=== PATIENT | male | born 1960 | race Caucasian/White ===

== ENCOUNTER 2020-07-02 11:30 | Inpatient (IN) | payer MEDICAID, SELFPAY ==
[~2020-07-02] VITALS: Ht 172.7 cm; Wt 90.3 kg
--- NOTE | 2020-07-02 11:39 | NUR ---
Patient ambulated to bed 8. RN evaluating patient at bedside.
[2020-07-02 11:41] VITALS: BP 123/89
--- NOTE | 2020-07-02 11:42 | NUR ---
60 y/o male from home c/o SOB, fatigue, and fever x 3 days. RR even and unlabored, able to speak in full sentences. Skin warm, dry, intact. Unknown positive covid contact. Denies cough. Pt awake and alert, x 1 side rail raised, bed locked and in lowest position. Placed on bedside monitor
--- NOTE | 2020-07-02 11:45 | NUR ---
Dr De Leon at bedside examining pt
--- NOTE | 2020-07-02 12:00 | NUR ---
Covid, RSV, Influenza swab collected from pt and sent to lab.
--- NOTE | 2020-07-02 12:07 | NUR ---
Pt placed on 4L NC, O2 >94% per Dr De Leon
[2020-07-02 12:17] LABS: HEMATOCRIT 41.3 % (36-52); HEMOGLOBIN 14.3 g/dL (12.0-18.0); MEAN CORPUSCULAR HEMOGLOBIN 30 pg (27-31); MEAN CORPUSCULAR HGB CONC 35 g/dL (33-37); MEAN CORPUSCULAR VOLUME 87.8 fL (80-94); PLATELET COUNT (AUTO) 156 K/uL (140-450); RED BLOOD CELL COUNT(AUTO) 4.71 MIL/uL (4.20-6.10); RED CELL DISTRIBUTION WIDTH 13.6 % (11.6-13.7); WHITE BLOOD COUNT (AUTO) 12.1 K/uL (4.8-10.8)
--- NOTE | 2020-07-02 12:18 | NUR ---
X-Ray at bedside.
[2020-07-02 12:29] LABS: PROTHROMBIN TIME 11.8 secs (10.8-13.4)
[2020-07-02 12:31] LABS: ALBUMIN 3.4 g/dL (3.4-5.0); ANION GAP 14.6 (8-16); CARBON DIOXIDE 24.8 mmol/L (21-32); POTASSIUM 3.4 mmol/L (3.5-5.1); TOTAL BILIRUBIN 1.1 mg/dL (0.0-1.0)
--- NOTE | 2020-07-02 12:36 | NUR ---
Lactic Acid 2.3-- critical vaule received from lab. Dr De Leon made aware
[2020-07-02 12:52] LABS: LACTATE DEHYDROGENASE 261 U/L (85-227)
[2020-07-02 12:53] LABS: C-REACTIVE PROTEIN QUANT 16.2 mg/dL (0.0-0.9)
[2020-07-02 12:56] LABS: LYMPHOCYTES % (MANUAL) 8 % (20-46); MONOCYTES % (MANUAL) 6 % (5-12)
[2020-07-02 12:57] LABS: APPEARANCE,URINE CLEAR (CLEAR); BILIRUBIN,URINE 1+ (NEGATIVE); BLOOD, URINE TRACE-L (NEGATIVE); COLOR,URINE YELLOW (YELLOW); LEUKOCYTE ESTERASE ,URINE NEGATIVE (NEGATIVE); NITRITE, URINE NEGATIVE (NEGATIVE); UGLUCOSE NEGATIVE (NEGATIVE)
[2020-07-02 13:01] LABS: RSV NEGATIVE (NEGATIVE)
[2020-07-02 13:13] LABS: RBC,URINE NONE SEEN /HPF (0-5); WBC,URINE 0-5 /HPF (0-5)
[2020-07-02] MEDS ORDERED: AZITHROMYCIN 1,000 MG in DEXTROSE 5% 500 ML IV ONE (13:25)
[2020-07-02] MEDS ORDERED: NACL 0.9% 2,000 ML IV ONE (13:25)
[2020-07-02] MEDS ORDERED: DEXAMETHASONE 10 MG/ML VIAL IVP ONE (13:25)
[2020-07-02] MEDS ORDERED: AZITHROMYCIN 500 MG INJ VIAL IV ONE (13:39)
--- NOTE | 2020-07-02 14:01 | NUR ---
Pt sitting upright in bed, HOB elevated. RR even and unlabored, tachypnic. Will continue to monitor
[2020-07-02] MEDS ORDERED: ONDANSETRON 4 MG/2 ML VIAL IM/IVP PRN (14:15)
[2020-07-02] MEDS ORDERED: POTASSIUM CHLORIDE 10 MEQ TABER PO PRN (14:15)
[2020-07-02] MEDS ORDERED: DOCUSATE SODIUM 100 MG GELCAP PO PRN (14:15)
[2020-07-02] MEDS ORDERED: HYDROcodone/APAP 7.5/325 MG 1 TAB PO PRN (14:15)
[2020-07-02] MEDS ORDERED: NACL 0.9% 1,000 ML IV SCH ×2 (14:25→16:00)
[2020-07-02 14:55] LABS: FREE T4 (FREE THYROXINE) 1.34 ng/dL (0.76-1.46); MAGNESIUM 1.9 mg/dL (1.8-2.4); PHOSPHORUS 2.5 mg/dL (2.5-4.9); THYROID STIMULATING HORMONE 1.25 uIU/mL (0.34-3.74)
[2020-07-02 14:56] LABS: BARBITURATE, URINE NEGATIVE ng/ml (NEG <=200); BENZODIAZEPINE, URINE NEGATIVE ng/mL (NEG <=200); CANNABINOID, URINE NEGATIVE ng/mL (NEG <=50); COCAINE, URINE NEGATIVE ng/mL (NEG <=300); OPIATE, URINE NEGATIVE ng/mL (NEG <=2000); PHENCYCLIDINE SCREEN,URINE NEGATIVE ng/mL (NEG <=25)
--- NOTE | 2020-07-02 15:19 | NUR ---
Patient will be admitted to care of Dr Monet. Admited to tele. Will go to room 120a. Belongings list completed. Report to SHADI Ponce.
[2020-07-02 15:20] VITALS: BP 121/74
--- NOTE | 2020-07-02 15:20 | NUR ---
RECEIVED REPORT FROM ER NURSE. PT ARRIVED ON WHEELCHAIR, AOX4-BERMUDIAN SPEAKING, ON 5L/NC, WITH LEFT AC #20G/SL. MRSA NARES COLLECTED AND TOLERATED WELL. ORIENTED PT TO ROOM. DISCUSSED PLAN OF CARE AND PT VERBALIZED UNDERSTANDING. CALL LIGHT WITHIN REACH. NO S/S OF RESPIRATORY DISTRESS OR DISCOMFORT NOTED AT THIS TIME. WILL CONTINUE TO MONITOR.
[2020-07-02] MEDS: NACL 0.9% 1,000 ML IV SCH (15:58)
--- NOTE | 2020-07-02 15:59 | NUR ---
JEAN PAUL BOGGS. SCHEDULED MEDICATION ROCEPHIN GIVEN AND TOLERATED WELL. CALL LIGHT WITHIN REACH. NO S/S OF RESPIRATORY DISTRESS OR DISCOMFORT NOTED AT THIS TIME. WILL CONTINUE TO MONITOR.
--- NOTE | 2020-07-02 19:30 | NUR ---
RECEIVED BEDSIDE REPORT FROM AM NURSE. AMBULATORY TELE PT. AWAKE IN BED, RESTING COMFORTABLY. NO SOB, NO ACUTE DISTRESS NOTED AT THIS TIME. RESPIRATIONS EVEN AND NON LABORED, ON 5L NC. DENIES ANY PAIN/DISCOMFORT. NOTED IV ACCESS ON L AC 20G. PATENT AND INTACT. DROPLET ISOLATION PRECAUTION OBSERVED. SAFETY MEASURES IN PLACED. CALL LIGHT WITHIN REACH. WILL CONTINUE TO MONITOR.
[2020-07-02 20:00] VITALS: BP 129/75
--- NOTE | 2020-07-02 21:30 | NUR ---
PT IN BED RESTING COMFORTABLY, DUE MEDS GIVEN ORDERED. ON CONTINUOUS O2 AT 5LPM VIA NC. SATTING 97%. NO ACUTE DISTRESS, NO SOB NOTED. SAFETY MEASURES IN PLACED. ISOLATION PRECAUTION OBSERVED. CALL LIGHT WITHIN REACH. WILL CONTINUE TO MONITOR.
--- NOTE | 2020-07-02 22:30 | NUR ---
CHECKED ON PT. STILL AWAKE. NO C/O ANY DISCOMFORT NOR SOB NOTED. WILL CONTINUE TO MONITOR.
[2020-07-03] VITALS: BP 111/67
--- NOTE | 2020-07-03 00:30 | NUR ---
ROUNDS DONE, PT AWAKE ON BED, RESTING COMFORTABLY, DENIES PAIN/DISCOMFORT. SAFETY MEASURES IN PLACED. WILL CONTINUE TO MONITOR.
--- NOTE | 2020-07-03 02:30 | NUR ---
PT IN BED RESTING COMFORTABLY, NO C/O OF PAIN OR DISCOMFORT. NO SOB, NO ACUTE DISTRESS NOTED. CALL LIGHT WITHIN REACH. WILL CONTINUE TO MONITOR.
[2020-07-03 04:00] VITALS: BP 130/70
--- NOTE | 2020-07-03 04:20 | NUR ---
PT IN BED LYING COMFORTABLY, V/S STABLE. AFEBRILE. O2 SAT 95%. DENIES ANY PAIN/DISCOMFORT AT THIS TIME. NO ACUTE DISTRESS NOTED. SAFETY MEASURES IN PLACED. CALL LIGHT WITHIN REACH. WILL CONTINUE TO MONITOR.
--- NOTE | 2020-07-03 06:20 | NUR ---
CHECKED ON PT, SEEN SLEEPING COMFORTABLY IN BED. NO SOB NOTED. WILL CONTINUE TO MONITOR.
[2020-07-03 06:31] LABS: HEMATOCRIT 37.7 % (36-52); HEMOGLOBIN 13.1 g/dL (12.0-18.0); LYMPHOCYTES # (AUTO) 0.6 K/uL (2.0-11.5); MEAN CORPUSCULAR HEMOGLOBIN 31 pg (27-31); MEAN CORPUSCULAR HGB CONC 35 g/dL (33-37); MEAN CORPUSCULAR VOLUME 88.5 fL (80-94); MONOCYTES # (AUTO) 0.4 K/uL (0.8-1.0); MONOCYTES % (AUTO) 4.4 % (1.7-9.3); NEUTROPHILS # (AUTO) 8.6 K/uL (1.8-7.7); PLATELET COUNT (AUTO) 134 K/uL (140-450); RED BLOOD CELL COUNT(AUTO) 4.26 MIL/uL (4.20-6.10); RED CELL DISTRIBUTION WIDTH 13.5 % (11.6-13.7); WHITE BLOOD COUNT (AUTO) 9.6 K/uL (4.8-10.8)
[2020-07-03 06:46] LABS: MAGNESIUM 1.9 mg/dL (1.8-2.4); PHOSPHORUS 2.4 mg/dL (2.5-4.9)
[2020-07-03] MEDS: NACL 0.9% 1,000 ML IV SCH (06:53)
--- NOTE | 2020-07-03 07:16 | NUR ---
ENDORSED PT IN STABLE CONDITION TO AM NURSE.
--- NOTE | 2020-07-03 07:17 | NUR ---
RECEIVED REPORT FROM PM RNAISHWARYA. PT CAME FROM HOME. C/O: SOB, FATIGUE, AND FEVER X2DAYS. DX: HYPOXIA, POSSIBLE PUI, R/O COVID19/ NO PMHXA. PT IS ON DROPLET PRECAUTIONS. PT HAS BEEN SR. RAPID COVID 19 TEST NEGATIVE, PENDING COVID19. IV: LT AC 18G NS 60MLS. PT IS AMBULATORY. O2: 5L NC. BATHROOM. AMBULATORY. PT TRAVELED OUT OF US 1MONTH AGO. XRAY: MILD BIBASAL ATELECTASIS. FOLLOW UP WITH CARRY IN WORKER.
[2020-07-03 07:53] LABS: LYMPHOCYTES % (AUTO) 6.5 % (20.5-51.1); NEUTROPHILS % (AUTO) 89.1 % (42.2-75.2)
[2020-07-03 08:00] VITALS: BP 124/68
[2020-07-03 08:10] LABS: T4 (THYROXINE) 11.2 ug/dL (4.5-12.0)
[2020-07-03] MEDS: AZITHROMYCIN 250 MG TAB PO SCH (08:15)
[2020-07-03] MEDS: ZINC SULF 220 MG CAP PO SCH (08:15)
[2020-07-03] MEDS: ASCORBIC ACID 500 MG TAB PO SCH (08:15)
--- NOTE | 2020-07-03 09:00 | NUR ---
PASSED MEDICATIONS. PT TOLERATED WELL. TAUGHT PT HOW TO USE AN INCENTIVE SPIROMETER. PT IS SATURATING WELL.
--- NOTE | 2020-07-03 11:00 | NUR ---
CHECKED ON PT. PT DENIES PAIN. PT IS SITTING UP IN BED. NO SIGNS OF DISTRESS.
[2020-07-03 12:00] VITALS: BP 131/74
--- NOTE | 2020-07-03 12:00 | NUR ---
VS STABLE. PT DENIES PAIN.
[2020-07-03] MEDS: ACETAMINOPHEN 325 MG TAB PO PRN (14:59)
--- NOTE | 2020-07-03 15:06 | NUR ---
PT COMPLAINING OF HEADACHE. TYLENOL GIVEN. CHECKED PTS TEMPERATURE. PT HAS A LOW FEVER 99.5. GAVE ICE PACK TO COOL HIM DOWN. PT FELT BETTER WITH ICE PACK. WILL CONTINUE TO MONITOR.
--- NOTE | 2020-07-03 15:50 | NUR ---
REASSESSED PT, PT DENIES HEADACHE AFTER TYLENOL GIVEN. PTS TEMPERATURE IS 99.1. TRENDING DOWN.
[2020-07-03 16:00] VITALS: BP 111/67
--- NOTE | 2020-07-03 16:54 | NUR ---
CRITICAL LAB VALUE:PT TESTED POSITIVE FOR COVID19. DR. FRASER NOTIFIED.
--- NOTE | 2020-07-03 19:21 | NUR ---
transfer of care to pm rnjase. pt is resting in bed. vs stable. no signs of distress
--- NOTE | 2020-07-03 19:21 | NUR ---
RECEIVED PT AAOX4 , NID - O2 SAT WNL - W/ O2 AT 5LPM/NC . IV SITE INTACT AND PATENT . SAFETY MEASURES IN PLACE . PLAN OF CARE DISCUSSED AND VERBALIZE UNDERSTANDING , ON TELE MONITOR - WILL CONT. TO MONITOR . PT HAS SKIN VITILIGO .
[2020-07-03 20:00] VITALS: BP 110/60
[2020-07-04] VITALS: BP 105/60
--- NOTE | 2020-07-04 | NUR ---
MADE ROUNDS . NO S/SX OF ACUTE DISTRESS NOTED
[2020-07-04 04:00] VITALS: BP 100/60
--- NOTE | 2020-07-04 04:00 | NUR ---
O2 SAT WNL - NO COMPLAIN MADE
[2020-07-04 05:22] LABS: BASOPHILS % (AUTO) 0.1 % (0.0-2.0); HEMATOCRIT 38.3 % (36-52); HEMOGLOBIN 13.1 g/dL (12.0-18.0); LYMPHOCYTES # (AUTO) 0.8 K/uL (2.0-11.5); MEAN CORPUSCULAR HEMOGLOBIN 30 pg (27-31); MEAN CORPUSCULAR HGB CONC 34 g/dL (33-37); MEAN CORPUSCULAR VOLUME 88.6 fL (80-94); MONOCYTES # (AUTO) 0.5 K/uL (0.8-1.0); MONOCYTES % (AUTO) 4.6 % (1.7-9.3); NEUTROPHILS # (AUTO) 9.9 K/uL (1.8-7.7); NEUTROPHILS % (AUTO) 88.3 % (42.2-75.2); PLATELET COUNT (AUTO) 154 K/uL (140-450); RED BLOOD CELL COUNT(AUTO) 4.32 MIL/uL (4.20-6.10); RED CELL DISTRIBUTION WIDTH 13.6 % (11.6-13.7); WHITE BLOOD COUNT (AUTO) 11.2 K/uL (4.8-10.8)
[2020-07-04 06:14] LABS: ALBUMIN 2.8 g/dL (3.4-5.0); ANION GAP 11.4 (8-16); CARBON DIOXIDE 27.5 mmol/L (21-32); CREATININE 0.8 mg/dL (0.6-1.3); PHOSPHORUS 3.7 mg/dL (2.5-4.9); POTASSIUM 3.9 mmol/L (3.5-5.1); TOTAL BILIRUBIN 0.4 mg/dL (0.0-1.0)
--- NOTE | 2020-07-04 07:22 | NUR ---
ENDORSED TO AM SHIFT - PT - STABLE .
[2020-07-04 07:59] VITALS: BP 142/76
[2020-07-04] MEDS: ZINC SULF 220 MG CAP PO SCH (09:12)
[2020-07-04] MEDS: ASCORBIC ACID 500 MG TAB PO SCH (09:12)
[2020-07-04] MEDS: AZITHROMYCIN 250 MG TAB PO SCH (09:12)
--- NOTE | 2020-07-04 09:24 | NUR ---
PATIENT HAS BEEN SCREENED AND CATEGORIZED MODERATE NUTRITION RISK. PATIENT WILL BE SEEN WITHIN 3-5 DAYS OF ADMISSION. 07/05/20 07/07/[address]
[2020-07-04 12:00] VITALS: BP 148/81
--- NOTE | 2020-07-04 16:11 | NUR ---
DC PLANNIN YRS OLD MALE PATIENT WAS ADMITTED FROM HOME WITH A DX OF HYPOXIA, POSSIBLE PNEUMONIA. PATIENT HAS NO MEDICAL HISTORY. CXR SHOWED BILATERAL LOWER LOBE INFILTRATES. PLACED PATIENT ON O2 4L/NC , COVID TEST POSITIVE. STARTED COVID PROTOCOL, IV ABX ROCEPHIN AND AZITHROMYCIN. CONSULTED WITH ONION TIER AND ID DR LAWRENCE . DC PLAN TO GO HOME WHEN STABLE CM TO FOLLOW Addendum: 07/05/20 at 1550 by Gloria Peraza CM DC HAND STONE POLISHER: RECEIVED ORDER FOR HOME 02. FAXED ORDER TO [facility]. Addendum: 07/07/20 at 0933 by Gloria Peraza DC HAND STONE POLISHER: FOLLOWED UP WITH ALISHA AT [facility], SHE NEEDS DOCUMENTATION OF PATIENT SATURATIONS OF 85 OR LESS IN ORDER TO QUALIFY TO HOME 02. SPOKE TO BILL IN RT HE WILL DO A 02 QUALIFIER. Addendum: 07/07/20 at 1213 by Gloria Peraza CM GAYATRI MCNEIL: THE HOME O2 HAS BEEN SENT OUT FOR DISPATCH THE ETA IS AROUND 1:00 PM Addendum: 07/07/20 at 1218 by Gloria Peraza CM GAYATRI MCNEIL: NOTIFIED SHADI RUBIO Addendum: 07/11/20 at 0911 by Gemini Boogie CM DC PLANNING: RECENT CXR SHOWED WORSENING AIRSPACE OPACITIES . DONOVAN AND MICKEY FOLLOWING. CONTINUE COVID-19 PROTOCOL , COMPLETED REMDESIVIR AND CONVALESCENT PLASMA . CONTINUE ZOSYN AND DECADRON. ON OXYMIZER 30% FIO2. DC PLAN TO GO HOME WITH HOME O2 WHEN STABLE. CM TO FOLLOW. Addendum: 07/12/20 at 1018 by Gemini Boogie CM DC PLANNING: SEEN BY DONOVAN AND MICKEY SUGGESTED TO CONTINUE CURRENT THERAPY , S/P REMDESIVIR TRY TO WEAN O2 AND IV STEROIDS X10 DAYS. FIO2 100% 30L/NC DC PLAN TO GO HOME WHEN STABLE CM TO FOLLOW. Addendum: 07/17/20 at 1527 by Gemini Boogie DC PLANNING: XRAY SHOWED STABLE BILATERAL CONSOLIDATION , PT CONTINUES 30L HIGH FLOW O2/NC AT 100%, CURRENTLY OFF ABX CONTINUES ON IV S/P REMDESIVIR AND PLASMA. PULMO AND ID FOLLOWING CM TO FOLLOW Addendum: 07/19/20 at 1055 by Gemini Boogie CM DC PLANNING: PT IS OFF HIGH FLOW OXYGEN ,CURRENTLY ON 10L OXYMIZER SATING 94 % , SWITCH TO PREDNISONE PO, DC PLAN ONCE ON 4L/NC OF OXYGEN TO DC HOME WITH HOME O2 . PT NEEDS OUT PATIENT FOLLOW UP FOR PFT AND CT CHEST NEXT 4-6 WEEKS. CM TO FOLLOW Addendum: 07/21/20 at 1215 by Gloria Peraza CM DC HAND STONE POLISHER: [facility] SHE IS REQUESTING US TO SEND DOCUMENTATION SO PATIENT CAN RE QUALIFY FOR HOME 02
[2020-07-04] MEDS: NACL 0.9% 1,000 ML IV SCH (16:13)
--- NOTE | 2020-07-04 16:16 | NUR ---
LATE ENTRY BILLING CLERK NOTE: Patient's Orientation Unable To Assess Information Provided By MICHAEL LU - DAUGHTER Comments JOSY WAS UNABLE TO MEET PATIENT AT BEDSIDE TO COMPLETE ASSESSMENT. JOSY COMPLETED ASSESSMENT WITH MICHAEL. Identification Printing Machine Setter, Realtionship and Phone Number NATALYA LEIGH DAUGHTER [phone] [facility] Power of Trash Hauler No Does Patient Have a POLST No Identifying Problems No Social Work Triggers Is A Social Work Consult Needed No Mandate Report Filed No Explanation Of Identifying Problems PATIENT IS A 60-YEAR-OLD MALE ADMITTED FOR HYPOXIA AND POSSIBLE PNA. PATIENT HAS NO REPORTED PMHX. PER PATIENT'S DAUGHTER, THERE IS NO KNOWN MENTAL HEALTH OR SUBSTANCE ABUSE HISTORY. Admitted From Home Pre-Admission Level Of Functioning Status Independent/Ambulatory Prior Resources/Services Used In Last 12 Months No Prior Resources Used Prior DME No Prior DME Used Living Situation Lives With Family House Patient Had Caregiver No Home Support No Caregiver Issues Financial Issues No Known Financial Issue Referral To The Financial Counselor Needed No Factors/Needs No D/C Needs Identified Pt/Rep Participated In Discharge Plan Yes Patient/Family Agress With Discharge Plan Yes Discharge Plan Comments TENTATIVE DISCHARGE PLAN IS FOR PATIENT TO RETURN HOME. DC Plan Status Initiated Addendum: 07/20/20 at 1145 by Victor Manuel Cabral JOSY FOLLOWED UP WITH PATIENT'S DAUGHTER MICHAEL LEIGH REGARDING PLAN OF CARE [phone]. JOSY INFORMED MICHAEL THAT HOME O2 WAS COORDINATED. MICHAEL REQUESTED MEDICAL UPDATE ON PATIENT. JOSY INFORMED HER THAT PATIENT WAS PENDING PULMO CONSULT. MICHAEL REQUESTED NURSING STATION PHONE NUMBER. JOSY PROVIDED [phone]. SW OFFERED SUPPORT AND AVAILABLE RESOURCES, BUT NO NEEDS WERE IDENTIFIED AT THIS TIME. SW WILL FOLLOW UP NEEDED.
[2020-07-04 16:40] VITALS: BP 145/79
[2020-07-04 20:00] VITALS: BP 145/80
--- NOTE | 2020-07-05 07:24 | NUR ---
ENDORSED TO NEXT SHIFT CONTINUITY OF CARE. PT A AO AMBULATORY, PT GOES TO BATHROOM, O2 SAT DECREASES TO 98%, BUT GOES BACK TO 94% ONCE IN BED . STILL WITH 4 LPM O2 VIA NC
--- NOTE | 2020-07-05 07:25 | NUR ---
RECEIVED BEDSIDE REPORT FROM NIGHTSHIFT NURSE. PT RESTING IN BED. ABLE TO MAKE NEEDS KNOWN. RESPIRATIONS EVEN AND UNLABORED WITH NO SOB OR RESPIRATORY DISTRESS. SKIN WARM AND DRY TO TOUCH. IV SITE IN LAC 22G IS CLEAN, DRY, AND INTACT. SAFETY MEASURES IN PLACE. WILL CONTINUE TO MONITOR
[2020-07-05 08:00] VITALS: BP 124/71
[2020-07-05] MEDS: ZINC SULF 220 MG CAP PO SCH (08:26)
[2020-07-05] MEDS: ASCORBIC ACID 500 MG TAB PO SCH (08:26)
[2020-07-05] MEDS: AZITHROMYCIN 250 MG TAB PO SCH (08:26)
[2020-07-05] MEDS: NACL 0.9% 1,000 ML IV SCH (08:41)
--- NOTE | 2020-07-05 08:42 | NUR ---
ADMINISTERED SCHED MED PRESCRIBED PER MD ORDER. PT TOLERATED WELL. MEDICATION EDUCATION PERFORMED. PT VERBALIZED UNDERSTANDING. SAFETY MEASURES IN PLACE. WILL CONTINUE TO MONITOR
[2020-07-05] MEDS: lisinopriL 10 MG TAB PO SCH (10:59)
--- NOTE | 2020-07-05 11:04 | NUR ---
ADMINISTERED SCHED MED PRESCRIBED PER MD ORDER. PT TOLERATED WELL. MEDICATION EDUCATION PERFORMED. PT VERBALIZED UNDERSTANDING. SAFETY MEASURES IN PLACE. WILL CONTINUE TO MONITOR
[2020-07-05] MEDS: ALBUTEROL HFA MDI 90 MCG/ACTUATION 8 GM INH PRN (11:15)
--- NOTE | 2020-07-05 11:15 | NUR ---
SATURATION 94% ON SUPPLEMENTAL OXYGEN AT 7 LPM VIA NC POST MDI THERAPY TITRATED FIO2 TO 6 LPM GROWTH HACKER TO MONITOR VICKY/RN NOTIFIED
--- NOTE | 2020-07-05 11:20 | NUR ---
TOLERATED INCENTIVE SPIROMETRY THERAPY WELL WITHOUT ADVERSE REACTIONS NOTED ENCOURAGED PATIENT WITH ACKNOWLEDGEMENT TO USE INCENTIVE SPIROMETRY EVERY 1-2 HOURS WHILE AWAKE
[2020-07-05 11:52] LABS: BASOPHILS % (AUTO) 0.1 % (0.0-2.0); HEMATOCRIT 40.5 % (36-52); HEMOGLOBIN 13.9 g/dL (12.0-18.0); LYMPHOCYTES # (AUTO) 1.1 K/uL (2.0-11.5); LYMPHOCYTES % (AUTO) 10.6 % (20.5-51.1); MEAN CORPUSCULAR HEMOGLOBIN 30 pg (27-31); MEAN CORPUSCULAR HGB CONC 34 g/dL (33-37); MEAN CORPUSCULAR VOLUME 88.1 fL (80-94); MONOCYTES # (AUTO) 0.7 K/uL (0.8-1.0); MONOCYTES % (AUTO) 6.5 % (1.7-9.3); NEUTROPHILS # (AUTO) 8.4 K/uL (1.8-7.7); NEUTROPHILS % (AUTO) 82.8 % (42.2-75.2); PLATELET COUNT (AUTO) 207 K/uL (140-450); RED BLOOD CELL COUNT(AUTO) 4.59 MIL/uL (4.20-6.10); RED CELL DISTRIBUTION WIDTH 13.3 % (11.6-13.7); WHITE BLOOD COUNT (AUTO) 10.2 K/uL (4.8-10.8)
[2020-07-05 12:00] VITALS: BP 149/77
[2020-07-05 12:12] LABS: ANION GAP 12.7 (8-16); CARBON DIOXIDE 27.8 mmol/L (21-32); CREATININE 0.8 mg/dL (0.6-1.3); POTASSIUM 3.5 mmol/L (3.5-5.1)
--- NOTE | 2020-07-05 14:00 | NUR ---
PATIENT COMPLAINED OF IV SITE PAIN. IV SITE NO LONGER HAD BLOOD RETURN OR ACCESSIBLE FLUSHING. REMOVED INTACT IV CANNULA AND STARTED NEW IV IN RAC 22G IS CLEAN, DRY, AND INTACT. SAFETY MEASURES IN PLACE. WILL CONTINUE TO MONITOR
--- NOTE | 2020-07-05 15:14 | NUR ---
ADMINISTERED SCHED MED PRESCRIBED PER MD ORDER. PT TOLERATED WELL. MEDICATION EDUCATION PERFORMED. PT VERBALIZED UNDERSTANDING. SAFETY MEASURES IN PLACE. WILL CONTINUE TO MONITOR
--- NOTE | 2020-07-05 15:45 | NUR ---
PATIENT SIGNED CONSENT FOR CONVALESCENT PLASMA. PLACED IN CHART. SAFETY MEASURES IN PLACE. WILL CONTINUE TO MONITOR
[2020-07-05] MEDS ORDERED: remdesivir COMMUNICATION ORDER 1 EA MISC MC PRN (15:55)
[2020-07-05 16:00] VITALS: BP 136/72
[2020-07-05] MEDS ORDERED: CLINICAL MONITORING MC PRN (16:15)
[2020-07-05] MEDS ORDERED: REMDESIVIR (EUA) 200 MG in NACL 0.9% 100 ML IV SCH (18:00)
--- NOTE | 2020-07-05 18:35 | NUR ---
ADMINISTERED SCHED MED PRESCRIBED PER MD ORDER. PT TOLERATED WELL. MEDICATION EDUCATION PERFORMED. PT VERBALIZED UNDERSTANDING. SAFETY MEASURES IN PLACE. WILL CONTINUE TO MONITOR
--- NOTE | 2020-07-05 19:15 | NUR ---
ENDORSED TO NIGHTSHIFT NURSE FOR CONTINUITY OF CARE. PT IS STABLE
--- NOTE | 2020-07-05 19:20 | NUR ---
RECEIVED REPORT FROM MARCELO RN. PT AOX4 ON O2 6L N/C. RESPIRATIONS EVEN AND UNLABORED. NO S/S OF RESPIRATORY DISTRESS. NO C/O PAIN AT THIS TIME. SKIN WARM AND DRY TO TOUCH. IV SITE RAC 22G, PATENT AND INTACT, RUNNING NS AT 60 ML/HR. SAFETY MEASURES IN PLACE. CALL LIGHT WITHIN REACH. WILL CONTINUE TO MONITOR
[2020-07-05 20:00] VITALS: BP 126/65
--- NOTE | 2020-07-05 20:07 | NUR ---
ADMINISTERED SCHEDULED HEPARIN SUBQ. PLATELET [id number]. PT TOLERATED WELL. WILL CONTINUE TO MONITOR
--- NOTE | 2020-07-05 20:25 | NUR ---
RECEIVED REPORT FROM AM SHIFT. PT SEEN AND ASSESSED. PT ON 6L NC WITH SPO2 OF 90%. CHANGED MODALITY TO OXYMIZER 6L WITH SPO2 OF 93%. CLEAR BREATH SOUNDS ON AUSCULTATION. PT IS IN NO APPARENT RESPIRATORY DISTRESS AT THIS TIME. PRN TX NOT INDICATED AT THIS TIME. WILL CONTINUE TO MONITOR PT.
--- NOTE | 2020-07-05 22:00 | NUR ---
PT RESTING IN BED. DENIES SOB. DENIES PAIN. NO DISTRESS NOTED. WILL CONTINUE TO MONITOR
[2020-07-06] VITALS: BP 132/69
--- NOTE | 2020-07-06 00:15 | NUR ---
PT ASLEEP IN BED. RESPIRATIONS EVEN AND UNLABORED. NO DISTRESS NOTED. WILL CONTINUE TO MONITOR
--- NOTE | 2020-07-06 01:30 | NUR ---
RESISTANCE ON IV SITE RAC 22G. NO BLOOD FLOW RETURN, DISCONTINUED AND CANNULA INTACT. REINSERTED NEW IV ON LFA 24G, PATENT AND INTACT. WILL CONTINUE TO MONITOR
[2020-07-06] MEDS: NACL 0.9% 1,000 ML IV SCH ×2 (01:33→18:30)
[2020-07-06 04:00] VITALS: BP 138/64
--- NOTE | 2020-07-06 04:00 | NUR ---
PT ASLEEP IN BED. NO DISTRESS NOTED. WILL CONTINUE TO MONITOR
[2020-07-06 05:20] LABS: HEMATOCRIT 38.9 % (36-52); HEMOGLOBIN 13.4 g/dL (12.0-18.0); LYMPHOCYTES # (AUTO) 1.4 K/uL (2.0-11.5); LYMPHOCYTES % (AUTO) 14.8 % (20.5-51.1); MEAN CORPUSCULAR HEMOGLOBIN 30 pg (27-31); MEAN CORPUSCULAR HGB CONC 34 g/dL (33-37); MONOCYTES # (AUTO) 0.6 K/uL (0.8-1.0); MONOCYTES % (AUTO) 6.4 % (1.7-9.3); NEUTROPHILS # (AUTO) 7.3 K/uL (1.8-7.7); NEUTROPHILS % (AUTO) 78.8 % (42.2-75.2); PLATELET COUNT (AUTO) 206 K/uL (140-450); RED BLOOD CELL COUNT(AUTO) 4.42 MIL/uL (4.20-6.10); RED CELL DISTRIBUTION WIDTH 13.4 % (11.6-13.7); WHITE BLOOD COUNT (AUTO) 9.3 K/uL (4.8-10.8)
--- NOTE | 2020-07-06 05:30 | NUR ---
PT AMBULATED TO TOILET AND BACK TO BED WITH STEADY GAIT. PT TOLERATED WELL. NO DISTRESS NOTED. WILL CONTINUE TO MONITOR
[2020-07-06 05:59] LABS: ANION GAP 13.5 (8-16); CARBON DIOXIDE 25.6 mmol/L (21-32); CREATININE 0.8 mg/dL (0.6-1.3); POTASSIUM 4.1 mmol/L (3.5-5.1)
--- NOTE | 2020-07-06 07:15 | NUR ---
ENDORSED PT TO DAY RN FOR CONTINUITY OF CARE. PT IS IN STABLE CONDITION
--- NOTE | 2020-07-06 07:20 | NUR ---
RECEIVED PT FROM AUCTION ASSISTANT NURSE, PT IS AWAKE AND SEATED ON THE BED, WATCHING TV, SAFETY PRECAUTION ENFORCED, PT IS ON ISOLATION AND HAS AN IV LINE NOTED ON THE LFA G. 24 WITH NS AT 60ML/HR, INTACT PT IS ON OXYMIZER AT 9L O2 SATURATION AT 91%, PT DENIES PAIN AND NO SIGN OF DISTRESS NOTED. WILL MONITOR PT.
[2020-07-06 08:00] VITALS: BP 105/56
[2020-07-06] MEDS: ZINC SULF 220 MG CAP PO SCH (08:55)
[2020-07-06] MEDS: ASCORBIC ACID 500 MG TAB PO SCH (08:56)
[2020-07-06] MEDS: lisinopriL 10 MG TAB PO SCH (08:56)
--- NOTE | 2020-07-06 08:56 | NUR ---
PT WAS GIVEN THE SCHEDULED AM MEDICATIONS, BP MED NOT GIVEN BP IS 105/56, PULSE IS 75, O2 SATURATION IS AT 93% ON OXYMIZER, NO SIGN OF DISTRESS NOTED AND WILL MONITOR PT.
[2020-07-06] MEDS: ACETAMINOPHEN 325 MG TAB PO PRN (11:34)
--- NOTE | 2020-07-06 11:34 | NUR ---
PT WAS GIVEN TYLENOL FOR TEMP. OF 100.4, WILL RE-ASSESS TEMP AND MONITOR PT.
[2020-07-06 12:00] VITALS: BP 122/64
[2020-07-06 12:46] LABS: ALBUMIN 2.6 g/dL (3.4-5.0); BILIRUBIN,DIRECT 0.2 mg/dL (0.0-0.3); TOTAL BILIRUBIN 0.5 mg/dL (0.0-1.0)
[2020-07-06] MEDS: REMDESIVIR (EUA) 100 MG in NACL 0.9% 100 ML IV SCH (15:36)
--- NOTE | 2020-07-06 15:36 | NUR ---
PT WAS GIVEN THE REMDESEVIR, PT IS WATCHING TV, DENIES PAIN, V/S TAKEN AND IS STABLE, O2 SATURATION IS AT 95% ON 02 6L VIA OXYMIZER, WILL MONITOR PT.
[2020-07-06 16:00] VITALS: BP 116/63
--- NOTE | 2020-07-06 18:32 | NUR ---
PT IS HAVING DINNER NOW, DENIES PAIN AND NO SIGN OF DISTRESS NOTED. WILL MONITOR PT.
--- NOTE | 2020-07-06 19:15 | NUR ---
ENDORSED PT TO CHRISTIAN SCIENCE HEALER NURSE FOR CONTINUITY OF CARE.
--- NOTE | 2020-07-06 19:16 | NUR ---
RECEIVED BEDSIDE ENDORSEMENT FROM SHADI MCCARTHY. PATIENT HAS NO SOB, ON 9L OXIMIZER, O2 SAT WNL, RESPIRATION EVEN AND UNLABORED, AOX4, WITH RT ARM DISCOLORATION, IVF INFUSING AT LFA G 22, DROPLET ISO OBSERVED, LOW BED IN PLACE, SAFETY MEASURES IN PLACE, PLAN OF CARE DISCUSSED, CALL LIGHT WITHIN REACH.
[2020-07-06 20:00] VITALS: BP 120/68
--- NOTE | 2020-07-06 20:20 | NUR ---
RECEIVED REPORT FROM AM SHIFT. PT SEEN AND ASSESSED. PT ON 10L OXYMIZER WITH SPO2 OF 93%. RALES BREATH SOUNDS ON AUSCULTATION. PT IS IN NO APPARENT RESPIRATORY DISTRESS AT THIS TIME. PRN TX NOT INDICATED AT THIS TIME. WILL CONTINUE TO MONITOR PT.
--- NOTE | 2020-07-06 21:19 | NUR ---
DUE MED GIVEN, TOLERATED WELL, MED EDUCATION PROVIDED, NO RESPIRATORY DISTRESS, WATCHING TV, DENIES PAIN.
--- NOTE | 2020-07-06 22:13 | NUR ---
PT WAS ASSISTED INTO PRONE POSITION. PT IS IN NO RESPIRATORY DISTRESS AT HIS TIME. SPO2 95%. RN DOROTHY WAS NOTIFIED.
--- NOTE | 2020-07-06 23:00 | NUR ---
RESPIRATION EVEN AND UNLABORED, NO SOB, ON PRONE POSITION, CALL LIGHT WITHIN REACH.
[2020-07-07] VITALS: BP 119/68
--- NOTE | 2020-07-07 02:00 | NUR ---
SLEEPING, O2 SAT AT 99%. PRONE POSITION, 9L OXIMIZER
[2020-07-07 04:00] VITALS: BP 122/68
--- NOTE | 2020-07-07 04:15 | NUR ---
V/S TAKEN, NO SOB, CALL LIGHT WITHIN REACH.
--- NOTE | 2020-07-07 06:49 | NUR ---
NOT IN ANY RESPIRATORY DISTRESS, PATIENT IS ASLEEP, ALL NEEDS ATTENDED, IN STABLE CONDITION THE WHOLE SHIFT, CALL LIGHT WITHIN REACH.
[2020-07-07 07:22] LABS: BASOPHILS % (AUTO) 0.1 % (0.0-2.0); EOSINOPHILS % (AUTO) 0.2 % (0.0-4.0); HEMATOCRIT 41.3 % (36-52); LYMPHOCYTES # (AUTO) 1.6 K/uL (2.0-11.5); MEAN CORPUSCULAR HEMOGLOBIN 30 pg (27-31); MEAN CORPUSCULAR HGB CONC 34 g/dL (33-37); MEAN CORPUSCULAR VOLUME 88.8 fL (80-94); MONOCYTES # (AUTO) 0.6 K/uL (0.8-1.0); MONOCYTES % (AUTO) 5.2 % (1.7-9.3); NEUTROPHILS # (AUTO) 9.9 K/uL (1.8-7.7); NEUTROPHILS % (AUTO) 81.5 % (42.2-75.2); PLATELET COUNT (AUTO) 236 K/uL (140-450); RED BLOOD CELL COUNT(AUTO) 4.65 MIL/uL (4.20-6.10); RED CELL DISTRIBUTION WIDTH 13.4 % (11.6-13.7); WHITE BLOOD COUNT (AUTO) 12.2 K/uL (4.8-10.8)
[2020-07-07 07:29] LABS: ANION GAP 13.5 (8-16); CARBON DIOXIDE 26.6 mmol/L (21-32); CREATININE 0.8 mg/dL (0.6-1.3); POTASSIUM 4.1 mmol/L (3.5-5.1)
--- NOTE | 2020-07-07 07:30 | NUR ---
RECEIVED REPORT FROM [facility] NURSE, ASSUMED CARE. PT RESTING COMFORTABLY WITH NO ADVERSE REACTIONS NOTED AND/OR REPORTED. PERSONAL BELONGINGS, BEDSIDE TABLE, CALL LIGHT WITHIN REACH. WILL CONTINUE TO MONITOR.
[2020-07-07 07:38] LABS: ALBUMIN 2.5 g/dL (3.4-5.0); BILIRUBIN,DIRECT 0.2 mg/dL (0.0-0.3); TOTAL BILIRUBIN 0.6 mg/dL (0.0-1.0)
[2020-07-07 08:00] VITALS: BP 121/65
[2020-07-07] MEDS: lisinopriL 10 MG TAB PO SCH (09:41)
[2020-07-07] MEDS: ZINC SULF 220 MG CAP PO SCH (09:41)
--- NOTE | 2020-07-07 09:50 | NUR ---
PT UNABLE TO DEBORAH ROOM AIR SPO2 IN LOW 80,S .80 .82 X [address] BACK ON O2
[2020-07-07] MEDS: NACL 0.9% 1,000 ML IV SCH (11:01)
[2020-07-07] MEDS: ASCORBIC ACID 500 MG TAB PO SCH (11:01)
[2020-07-07 12:00] VITALS: BP 126/70
--- NOTE | 2020-07-07 12:45 | NUR ---
[facility]OU[facility] 1 PORTABLE O2, NC AND TRANSFER CRAD[place] FOR PT'S HOME. PLACED IN PT'S ROOM.
--- NOTE | 2020-07-07 14:57 | NUR ---
07/07/20 RD INITIAL ASSESSMENT COMPLETED PLEASE REFER TO NUTRITION ASSESSMENT UNDER CARE ACTIVITY FOR ESTIMATED NUTRITIONAL NEEDS. 1. CONTINUE MECHANICAL SOFT DIET TOLERATED 2. CONTINUE ENSURE TID 3. RD PROVIDED NUTRITION EDUCATION HANDOUT ON COVID-[address] [place] [address] TO FOLLOW-UP 3-5 DAYS, MODERATE RISK ARASH SMITH RD
[2020-07-07 16:00] VITALS: BP 111/59
[2020-07-07] MEDS: REMDESIVIR (EUA) 100 MG in NACL 0.9% 100 ML IV SCH (16:26)
--- NOTE | 2020-07-07 18:51 | NUR ---
CARE PLAN REVIEWED, INTERVENTIONS IMPLEMENTED: PT REPOSITIONED FREQUENTLY THROUGHOUT SHIFT, LABS AND I/O MONITORED, IV FLUIDS THERAPY, IV ANTIVIRAL/ABX THERAPY. VSS, AFEBRILE, O2 SAT >92% ON 10 LPM OXIMIZER. NO C/O PAIN THROUGHOUT SHIFT. PT CONTINUES TO BE A/O X4. PT CONTINUES ON IV FLUIDS WITH NO ADVERSE REACTIONS NOTED AND/OR REPORTED. PT CONTINUES ON IV ABX AND ANTIVIRALS WITH NO ADVERSE REACTIONS NOTED AND/OR REPORTED. ALL NEEDS MET THIS SHIFT. PERSONAL BELONGINGS, BEDSIDE TABLE, CALL LIGHT WITHIN REACH. WILL CONTINUE TO MONITOR.
--- NOTE | 2020-07-07 19:00 | NUR ---
RECEIVED REPORT FROM AM SHIFT. PT SEEN AND ASSESSED. PT ON 10L OXYMIZER WITH SPO2 OF 91%. RALES BREATH SOUNDS ON AUSCULTATION. PT IS IN NO APPARENT RESPIRATORY DISTRESS AT THIS TIME. PRN TX NOT INDICATED AT THIS TIME. WILL CONTINUE TO MONITOR PT.
[2020-07-07 20:00] VITALS: BP 126/60
--- NOTE | 2020-07-07 20:00 | NUR ---
RECEIVED PT AWAKE AND ALERT IN BED. PT RECEIVING 10L O2 VIA OXIMIZER. PT ON CONTINUOUS O2 MONITORING. PT GETS HYPOXIC WITH O2 DROPPING TO 88-89% WITH EXERTION. PT DENIES ANY PAIN OR DISCOMFORT AT THIS TIME. PT EDUCATED ON PRONING. PT VERBALIZED UNDERSTANDING. PT ON TELE MONITORING. BED LOWERED WITH CALL LIGHT WITHIN REACH
[2020-07-08] VITALS: BP 121/67
--- NOTE | 2020-07-08 01:43 | NUR ---
PT ASLEEP IN BED. NO S/S OF DISTRESS NOTED. O2 SAT 91% ON 10L OXIMIZER
[2020-07-08] MEDS: NACL 0.9% 1,000 ML IV SCH ×2 (03:47→20:13)
[2020-07-08 04:52] VITALS: BP 115/72
--- NOTE | 2020-07-08 05:00 | NUR ---
PT AWAKE IN BED IN PRONE POSITION. O2 SAT 95% ON 10L VIA OXIMIZER. NO S/S OF DISTRESS AT THIS TIME
[2020-07-08 05:42] LABS: BASOPHILS % (AUTO) 0.1 % (0.0-2.0); EOSINOPHILS % (AUTO) 0.2 % (0.0-4.0); HEMATOCRIT 39.8 % (36-52); HEMOGLOBIN 13.5 g/dL (12.0-18.0); LYMPHOCYTES # (AUTO) 1.5 K/uL (2.0-11.5); LYMPHOCYTES % (AUTO) 11.5 % (20.5-51.1); MEAN CORPUSCULAR HEMOGLOBIN 30 pg (27-31); MEAN CORPUSCULAR HGB CONC 34 g/dL (33-37); MEAN CORPUSCULAR VOLUME 88.4 fL (80-94); MONOCYTES # (AUTO) 0.5 K/uL (0.8-1.0); NEUTROPHILS # (AUTO) 11.1 K/uL (1.8-7.7); NEUTROPHILS % (AUTO) 84.2 % (42.2-75.2); PLATELET COUNT (AUTO) 236 K/uL (140-450); RED BLOOD CELL COUNT(AUTO) 4.51 MIL/uL (4.20-6.10); RED CELL DISTRIBUTION WIDTH 13.3 % (11.6-13.7); WHITE BLOOD COUNT (AUTO) 13.2 K/uL (4.8-10.8)
[2020-07-08 05:47] LABS: ANION GAP 10.8 (8-16); CARBON DIOXIDE 29.2 mmol/L (21-32); CREATININE 0.8 mg/dL (0.6-1.3)
[2020-07-08 05:58] LABS: ALBUMIN 2.5 g/dL (3.4-5.0); BILIRUBIN,DIRECT 0.1 mg/dL (0.0-0.3); TOTAL BILIRUBIN 0.5 mg/dL (0.0-1.0)
--- NOTE | 2020-07-08 07:30 | NUR ---
RECEIVED REPORT FROM [facility] NURSE, ASSUMED CARE. PT RESTING COMFORTABLY WITH NO S/S OF PAIN AND/OR DISTRESS AT THIS TIME. PERSONAL BELONGINGS, BEDSIDE TABLE, CALL LIGHT WITHIN REACH. WILL CONTINUE TO MONITOR.
[2020-07-08 08:00] VITALS: BP 115/64
[2020-07-08] MEDS: lisinopriL 10 MG TAB PO SCH (09:59)
[2020-07-08] MEDS: ASCORBIC ACID 500 MG TAB PO SCH (09:59)
[2020-07-08] MEDS: ZINC SULF 220 MG CAP PO SCH (10:00)
[2020-07-08 12:00] VITALS: BP 116/63
--- NOTE | 2020-07-08 12:30 | NUR ---
received report from rnjaxon. assumed care of pts. pt is comfortable in bed. resting.
--- NOTE | 2020-07-08 13:00 | NUR ---
pt has a fever, 102.5. notified dr. benavides. gave tylenol and ice pack to help cool pt down.
[2020-07-08] MEDS: ACETAMINOPHEN 325 MG TAB PO PRN (13:04)
[2020-07-08] MEDS: ALBUTEROL HFA MDI 90 MCG/ACTUATION 8 GM INH PRN (13:40)
--- NOTE | 2020-07-08 14:00 | NUR ---
pts fever went down to 98.6. pt is doing better. skin is cooler to touch. no complaints of pain,
--- NOTE | 2020-07-08 14:30 | NUR ---
RETURNED FFP BACK TO THE BLOOD BANK BECAUSE THE BLOOD TYPES WERE NOT COMPATIBLE. PT IS O+ AND THE DONOR WAS A+. IT WAS UNCLEAR ON WHETHER THE PLASMA TYPES WERE COMPATIBLE. CONSULTED WITH PAROLE AGENT AND CHARGE NURSE. CONSULTED WITH DR WILSON. DR. WILSON SAID NOT TO GIVE FRESH FROZEN PLASMA DUE TO THE COMPATIBILITY. FFP WAS NOT GIVEN. RETURNED BACK TO THE BLOOD BANK.
[2020-07-08 16:00] VITALS: BP 103/57
[2020-07-08] MEDS: REMDESIVIR (EUA) 100 MG in NACL 0.9% 100 ML IV SCH (16:16)
--- NOTE | 2020-07-08 19:14 | NUR ---
TRANSFER OF CARE TO PM RN. PT IS STABLE. RUNNING FFP AT 200MLS. PT IS TOLERATING TX.
--- NOTE | 2020-07-08 19:15 | NUR ---
RECEIVED PATIENT IN STABLE CONDITION FROM AM SHIFT NURSE FOR CONTINUITY OF CARE. TELE PATIENT. RESPIRATIONS EVEN, UNLABORED. CONTINUES ON O2 10L VIA OXIMIZER. O2SAT 94%. SKIN WARM, DRY. IV SITE TO LEFT FOREARM 22G, PATENT/INTACT, INFUSING FLUIDS WELL. NO C/O PAIN. NO S/S ACUTE DISTRESS. ABDOMEN SOFT, NONTENDER, NONDISTENDED. CONTINENT OF B/B. PLAN OF CARE DISCUSSED WITH PATIENT. ISOLATION PRECAUTIONS OBSERVED BY ALL STAFF.
[2020-07-08 20:00] VITALS: BP 103/56
[2020-07-08] MEDS: PIPERACILLIN/TAZOBACTAM 3.375 GM in DEXTROSE 5% 50 ML IV SCH (20:55)
--- NOTE | 2020-07-08 21:00 | NUR ---
PATIENT RESTING WELL IN BED TALKING ON PHONE WITH FAMILY. NO S/S ACUTE DISTRESS. NO C/O PAIN. DUE MEDS GIVEN ORDERED. ISOLATION PRECAUTIONS OBSERVED BY ALL STAFF. CALL LIGHT WITHIN REACH.
--- NOTE | 2020-07-08 23:41 | NUR ---
MADE ROUNDS. PATIENT IS ASLEEP. NO S/S ACUTE DISTRESS. CALL LIGHT WITHIN REACH. ISOLATION PRECAUTIONS OBSERVED BY ALL STAFF.
[2020-07-09] VITALS: BP 113/61
--- NOTE | 2020-07-09 01:20 | NUR ---
PATIENT IS RESTING COMFORTABLY IN BED. NO S/S ACUTE DISTRESS. CALL LIGHT WITHIN REACH. ISOLATION PRECAUTIONS OBSERVED BY ALL STAFF.
--- NOTE | 2020-07-09 03:06 | NUR ---
PATIENT IS ASLEEP. NO S/S ACUTE DISTRESS. CALL LIGHT WITHIN REACH. ISOLATION PRECAUTIONS OBSERVED BY ALL STAFF.
[2020-07-09 04:00] VITALS: BP 119/75
[2020-07-09] MEDS: PIPERACILLIN/TAZOBACTAM 3.375 GM in DEXTROSE 5% 50 ML IV SCH ×3 (04:27→20:54)
--- NOTE | 2020-07-09 05:12 | NUR ---
PATIENT IS AWAKE AND IN NO DISTRESS. C/O THAT HIS NOSE HURT FROM THE OXIMIZER BUT WAS RECEPTIVE TO THE EDUCATION REGARDING OXYGEN THERAPY. PATIENT IS VERY COMPLIANT WITH CARE. ALL OTHER NEEDS ATTENDED TO. CALL LIGHT WITHIN REACH AT ALL TIMES. ISOLATION PRECAUTIONS OBSERVED BY ALL STAFF.
--- NOTE | 2020-07-09 06:38 | NUR ---
DUE MEDS GIVEN ORDERED. PATIENT IS ASLEEP AND IN STABLE CONDITION. CONTINUES ON O2 10L VIA OXIMIZER WITH O2SAT 88-89%. CALL LIGHT WITHIN REACH. ISOLATION PRECAUTIONS OBSERVED BY ALL STAFF.
--- NOTE | 2020-07-09 07:10 | NUR ---
RECEIVED REPORT FROM NIGHT NURSE PT IS AAOX4 ON OXYGEN 2LPM VIA OXIMIZER, ON REGULAR DIET AMBULATORY, IV SITES INTACT AND PATENT AT LEFT FA G22, SKIN INTACT SAFETY MEASURES IN PLACE AND CALL LIGHT WITHIN REACH. WILL CONTINUE TO MONITOR.
--- NOTE | 2020-07-09 07:10 | NUR ---
RECEIVED REPORT FROM NIGHT NURSE PT IS AAOX2 ON OXYGEN 2LPM VIA NC, SKIN INTACT, IV SITES IN PLACE AND INTACT ON THE LEFT HAND G18 AND SALINE LOCK ON RIGHT HAND G18. ON MECHANICAL SOFT. SAFETY MEASURES IN PLACE AND CALL LIGHT WITHIN [facility], WILL CONTINUE TO MONITOR. Addendum: 07/09/20 at 0755 by Alysha Hoang RN WRONG PATIENT.
[2020-07-09 07:38] LABS: ANION GAP 11.6 (8-16); CARBON DIOXIDE 27.6 mmol/L (21-32); CREATININE 0.8 mg/dL (0.6-1.3); POTASSIUM 4.2 mmol/L (3.5-5.1)
[2020-07-09 07:42] LABS: BASOPHILS % (AUTO) 0.1 % (0.0-2.0); EOSINOPHILS % (AUTO) 0.1 % (0.0-4.0); HEMATOCRIT 38.2 % (36-52); LYMPHOCYTES # (AUTO) 1.2 K/uL (2.0-11.5); LYMPHOCYTES % (AUTO) 8.8 % (20.5-51.1); MEAN CORPUSCULAR HEMOGLOBIN 30 pg (27-31); MEAN CORPUSCULAR HGB CONC 34 g/dL (33-37); MEAN CORPUSCULAR VOLUME 87.4 fL (80-94); MONOCYTES # (AUTO) 0.5 K/uL (0.8-1.0); MONOCYTES % (AUTO) 3.4 % (1.7-9.3); NEUTROPHILS # (AUTO) 11.7 K/uL (1.8-7.7); NEUTROPHILS % (AUTO) 87.6 % (42.2-75.2); PLATELET COUNT (AUTO) 242 K/uL (140-450); RED BLOOD CELL COUNT(AUTO) 4.37 MIL/uL (4.20-6.10); RED CELL DISTRIBUTION WIDTH 13.3 % (11.6-13.7); WHITE BLOOD COUNT (AUTO) 13.4 K/uL (4.8-10.8)
[2020-07-09 07:47] LABS: ALBUMIN 2.4 g/dL (3.4-5.0); BILIRUBIN,DIRECT 0.2 mg/dL (0.0-0.3); TOTAL BILIRUBIN 0.5 mg/dL (0.0-1.0)
[2020-07-09 08:00] VITALS: BP 129/49
[2020-07-09] MEDS: ZINC SULF 220 MG CAP PO SCH (08:23)
[2020-07-09] MEDS: ASCORBIC ACID 500 MG TAB PO SCH (08:23)
[2020-07-09] MEDS: lisinopriL 10 MG TAB PO SCH (08:24)
--- NOTE | 2020-07-09 08:38 | NUR ---
MEDICATION DUE GIVEN AT THIS TOME PT IS SITTING AND EATING, PT SAID ABLE TO SLEEP WELL AND FELLS BETTER. CHECK VITAL SIGNS PRIOR TO MEDICATION BP 122/65 NV 77. PT IS STABLE . NO DISTRESS NOTED AND DENIES PAIN. SAFETY MEASURES IN PLACE CALL LIGHT WITHIN REACH WILL CONTINUE TO MONITOR.
--- NOTE | 2020-07-09 11:00 | NUR ---
RESPIRATORY THERAPIST INCREASED OXYGEN LEVEL FROM 10LPM TO 14LPM VIA OXIMIZER AT THIS TIME. PT IS STABLE.
[2020-07-09 12:00] VITALS: BP 116/65
[2020-07-09] MEDS: NACL 0.9% 1,000 ML IV SCH (12:30)
--- NOTE | 2020-07-09 12:30 | NUR ---
MADE ROUNDS AT THIS TIME CHECK VITAL SIGNS AND ADMINISTERED ZOSYN 1OOML. PATIENT IS AWAKE AND NO DISTRESS NOTED AT 88 % OXYGEN SATURATION.
--- NOTE | 2020-07-09 14:40 | NUR ---
DR MALLOY CHECKED THE PATIENT AT THIS TIME AND GAVE ORDER OF PUTTING THE PATIENT ON HIGH FLOW. RT AWARE.
[2020-07-09] MEDS: REMDESIVIR (EUA) 100 MG in NACL 0.9% 100 ML IV SCH (15:55)
[2020-07-09 16:00] VITALS: BP 116/66
--- NOTE | 2020-07-09 16:00 | NUR ---
MEDICATIONS DUE GIVEN AT THIS TIME PATIENT IS IN HIGH FLOW NASAL CANULA 30% PT FEEL BETTER AND CAN BREATH BETTER. OXYGEN SATURATION AT 95%.
--- NOTE | 2020-07-09 19:15 | NUR ---
RECEIVED REPORT FROM DAY SHIFT NURSE FOR CONTINUITY OF CARE. PT IS AWAKE AND ALERT. A&O X 4. BREATHING IS UNLABORED. HE IS ON HI FLOW OXYGEN AT 30 L. O2 SAT AT 93%. SR ON TELE MONITORING. PT AMBULATES TO THE RESTROOM NEEDED. SKIN IS WARM, DRY, AND INTACT. WHITE DISCOLORATION ON SKIN. IV IS LEFT FOREARM 22 GAUGE RUNNING NS AT 60 ML PER HOUR. IV IS PATENT AND INTACT. BED IS IN THE LOWEST POSITION, CALL LIGHT IS WITHIN REACH. PLAN OF CARE WAS DISCUSSED. PT IS STABLE AT THIS TIME.
--- NOTE | 2020-07-09 19:20 | NUR ---
ENDORSED TO NIGHT NURSE FOR CONTINUITY OF CARE. PT IS STABLE
[2020-07-09 20:00] VITALS: BP 117/63
--- NOTE | 2020-07-09 21:15 | NUR ---
PT IS AWAKE AND ALERT. WATCHING TV IN BED. STATES HE IS FEELING A LOT BETTER. O2 SAT IS 94% ON HIGH FLOW NC WITH 30L O2. BREATHING IS UNLABORED. PT IS PERFORMING IS AT BEDSIDE. EDUCATION WAS GIVEN ON IMPORTANCE OF USING THE INCENTIVE SPIROMETER. PT VERBALIZED UNDERSTANDING. STABLE AT THIS TIME.
--- NOTE | 2020-07-09 23:05 | NUR ---
ROUNDED ON PT. HE IS AWAKE AND ON THE PHONE. PT IS NOT IN ANY DISTRESS OR PAIN. BREATHING IS REGULAR AND UNLABORED. O2 SAT IS 95% ON 30 L HIGH FLOW NC. IV FLUIDS ARE INFUSING AND BED IS IN THE LOWEST POSITION.
[2020-07-10] VITALS: BP 115/68
--- NOTE | 2020-07-10 01:11 | NUR ---
PT IS ASLEEP. VS ARE STABLE. O2 SAT IS 95% ON 30 L O2 HIGH FLOW NC. CHEST RISE AND FALL IS SYMMETRICAL. BED IS IN THE LOWEST POSITION AND CALL LIGHT IS WITHIN REACH.
--- NOTE | 2020-07-10 03:15 | NUR ---
IV IS PATENT AND INTACT. FLUIDS ARE RUNNING AT 20 ML PER HOUR PER ORDER. PT IS SLEEPING IN SEMI FOWLERS POSITION. NO COUGHING NOTED. NO RESPIRATORY DISTRESS AT THIS TIME. PT IS STABLE
[2020-07-10 04:00] VITALS: BP 107/61
[2020-07-10] MEDS: PIPERACILLIN/TAZOBACTAM 3.375 GM in DEXTROSE 5% 50 ML IV SCH ×3 (05:03→23:29)
--- NOTE | 2020-07-10 05:13 | NUR ---
ANTIBIOTIC IS RUNNING AND IV IS PATENT. PATIENT IS AWAKE AND TALKING. BREATHING IS UNLABORED. O2 SAT IS 94%. PT WAS GIVEN A BLANKET FOR COMFORT. PT HAS NO REQUESTS AT THIS TIME. WILL CONTINUE TO MONITOR OXYGEN SATURATION AND WORK OF BREATHING.
--- NOTE | 2020-07-10 06:46 | NUR ---
O2 SAT IS 89% ON HIGH FLOW NASAL CANNULA AT 30 L. PT SEEMS EXHAUSTED BUT BREATHING IS UNLABORED. HE IS NOT IN ANY DISTRESS OR PAIN. NO COUGHING CURRENTLY. WILL CONTINUE TO MONITOR.
--- NOTE | 2020-07-10 07:05 | NUR ---
ENDORSED PT TO DAY SHIFT NURSE FOR CONTINUITY OF CARE. PT IS STABLE AT THIS TIME. O2 SAT IS 95% AND BREATHING IS UNLABORED. PLAN OF CARE WAS DISCUSSED.
--- NOTE | 2020-07-10 07:10 | NUR ---
RECEIVED REPORT FROM NIGHTSHIFT NURSE. PT RESTING IN BED. ABLE TO MAKE NEEDS KNOWN. RESPIRATIONS EVEN AND UNLABORED WITH NO SOB OR RESPIRATORY DISTRESS. SKIN WARM AND DRY TO TOUCH. IV SITE IN LFA 22G IS CLEAN, DRY, AND INTACT. SAFETY MEASURES IN PLACE. WILL CONTINUE TO MONITOR
[2020-07-10 07:30] LABS: BASOPHILS % (AUTO) 0.1 % (0.0-2.0); HEMATOCRIT 40.6 % (36-52); HEMOGLOBIN 13.9 g/dL (12.0-18.0); LYMPHOCYTES # (AUTO) 1.3 K/uL (2.0-11.5); LYMPHOCYTES % (AUTO) 8.3 % (20.5-51.1); MEAN CORPUSCULAR HEMOGLOBIN 30 pg (27-31); MEAN CORPUSCULAR HGB CONC 34 g/dL (33-37); MEAN CORPUSCULAR VOLUME 87.8 fL (80-94); MONOCYTES # (AUTO) 0.6 K/uL (0.8-1.0); MONOCYTES % (AUTO) 3.9 % (1.7-9.3); NEUTROPHILS # (AUTO) 13.8 K/uL (1.8-7.7); NEUTROPHILS % (AUTO) 87.7 % (42.2-75.2); PLATELET COUNT (AUTO) 281 K/uL (140-450); RED BLOOD CELL COUNT(AUTO) 4.63 MIL/uL (4.20-6.10); RED CELL DISTRIBUTION WIDTH 13.5 % (11.6-13.7); WHITE BLOOD COUNT (AUTO) 15.7 K/uL (4.8-10.8)
[2020-07-10 07:33] LABS: ANION GAP 13.8 (8-16); CARBON DIOXIDE 27.4 mmol/L (21-32); CREATININE 0.8 mg/dL (0.6-1.3); POTASSIUM 4.2 mmol/L (3.5-5.1)
[2020-07-10 08:00] VITALS: BP 110/63
[2020-07-10] MEDS: lisinopriL 10 MG TAB PO SCH (08:54)
[2020-07-10] MEDS: ZINC SULF 220 MG CAP PO SCH (08:54)
[2020-07-10] MEDS: ASCORBIC ACID 500 MG TAB PO SCH (08:54)
--- NOTE | 2020-07-10 09:03 | NUR ---
ADMINISTERED SCHED MED PRESCRIBED PER MD ORDER. PT TOLERATED WELL. MEDICATION EDUCATION PERFORMED. PT VERBALIZED UNDERSTANDING. SAFETY MEASURES IN PLACE. WILL CONTINUE TO MONITOR
--- NOTE | 2020-07-10 11:04 | NUR ---
HOURLY ROUNDING. PT RESTING IN BED. ABLE TO MAKE NEEDS KNOWN. RESPIRATIONS EVEN AND UNLABORED WITH NO SOB OR RESPIRATORY DISTRESS. SKIN WARM AND DRY TO TOUCH. SAFETY MEASURES IN PLACE. WILL CONTINUE TO MONITOR
[2020-07-10 12:00] VITALS: BP 120/74
[2020-07-10] MEDS: NACL 0.9% 1,000 ML IV SCH (12:22)
--- NOTE | 2020-07-10 12:23 | NUR ---
ADMINISTERED SCHED IVF PRESCRIBED PER MD ORDER. PT TOLERATED WELL. MEDICATION EDUCATION PERFORMED. PT VERBALIZED UNDERSTANDING. SAFETY MEASURES IN PLACE. WILL CONTINUE TO MONITOR
--- NOTE | 2020-07-10 12:48 | NUR ---
ADMINISTERED SCHED MED PRESCRIBED PER MD ORDER. PT TOLERATED WELL. MEDICATION EDUCATION PERFORMED. PT VERBALIZED UNDERSTANDING. SAFETY MEASURES IN PLACE. WILL CONTINUE TO MONITOR
--- NOTE | 2020-07-10 14:25 | NUR ---
PT RESTING IN BED. FLACC 0. RESPIRATIONS EVEN AND UNLABORED WITH NO SOB OR RESPIRATORY DISTRESS. SKIN WARM AND DRY TO TOUCH. SAFETY MEASURES IN PLACE. WILL CONTINUE TO MONITOR
[2020-07-10 16:00] VITALS: BP 104/63
--- NOTE | 2020-07-10 18:05 | NUR ---
PT RESTING IN BED EATING DINNER. ABLE TO MAKE NEEDS KNOWN. RESPIRATIONS EVEN AND UNLABORED WITH NO SOB OR RESPIRATORY DISTRESS. SKIN WARM AND DRY TO TOUCH. SAFETY MEASURES IN PLACE. WILL CONTINUE TO MONITOR
--- NOTE | 2020-07-10 19:28 | NUR ---
ENDORSED TO NIGHTSHIFT FOR CONTINUITY OF CARE. PT IS STABLE
--- NOTE | 2020-07-10 19:35 | NUR ---
PT IN BED AOX4 STABLE WITH NO C/O VOICED. PT IS ON 30 LITERS HIGH FLOW NASAL CANNULA. PT STATING AT 90%. IV SITE ON LFA INTACT AND ASYMPTOMATIC RUNNING NORMAL SALINE AT 20MLS/HR. DROPLET PRECAUTIONS IN PLACE. REPORT GIVEN AT BEDSIDE BY BRIANA HSU DAYSHIFT NURSE.
[2020-07-10 20:00] VITALS: BP 98/61
--- NOTE | 2020-07-10 21:30 | NUR ---
RT MAKING ROUNDS AND IN PT ROOM ASSESSING PT.
--- NOTE | 2020-07-10 22:00 | NUR ---
PT SITTING UP IN BED ZOSYN HUNG AND RUNNING AT 100MLS/HR ORDERED. IV SITE LF/A 22G INTACT, ASYMPTOMATIC AND FLUSHED PATENT. PT ALSO GIVEN ORDERED HEPARIN SQ SHOT(PLATELETS 281). MEDICATION EDUCATION GIVEN INCLUDING SIDE EFFECTS, PT ACKNOWLEDGED UNDERSTANDING. 02 88% ON HIGH FLOW 30 LITERS PT SAID HE FELT NO DISCOMFORT, NO SOB PT LUNGS CLEAR AND BOWEL SOUNDS PRESENT. RT MADE AWARE PT STATING 88% AND COMFORTABLE, PER RT, OK. ALL FALLS AND DROPLET PRECAUTIONS IN PLACE.
[2020-07-11] VITALS: BP 92/52
--- NOTE | 2020-07-11 | NUR ---
PT IN BED NO S/S OF PAIN OR DISTRESS NOTED. 02 REMAINS AT 30 LITERS VIA HI FLOW N/C.PT RESTING WITH EYES CLOSED BUT AROUSABLE TO NAME AND LIGHT TOUCH NO C/O VOICED AT THIS TIME. IV FLUIDS RUNNING NORMAL SALINE AT 20MLS/HR ORDERED. ALL FALLS AND DROPLET PRECAUTIONS IN PLACE; V/S FOLLOWS: T 97.7 P 74 R 20 B/P 102/59 02 91% ON 30MLS HIGH FLOW N/C.
--- NOTE | 2020-07-11 02:15 | NUR ---
ROUNDS DONE, PT ASLEEP IN BED SUPPLEMENT 02 AT 30 LITERS HIGH FLOW N/C. 02 AT 92%. PT SLEEPING IN BED NO S/S OF PAIN OR DISTRESS NOTED. NORMAL SALINE RUNNING AT 20MLS/HR. ALL DROPLET AND FALLS PRECAUTIONS IN PLACE.
[2020-07-11 04:00] VITALS: BP 102/59
--- NOTE | 2020-07-11 04:00 | NUR ---
PT IN BED AWAKE SITTING UP IN BED HE CONTINUES ON HIGH FLOW 30MLS/HR V/S FOLLOWS: T 97.4 P 70 R 18 B/P 92/52 02 IS 89%. PT HAS NO SOB AND NO C/O VOICED. ALL DROPLET AND FALLS PRECAUTIONS IN PLACE.
--- NOTE | 2020-07-11 05:30 | NUR ---
DUE RENETTA BOGGS AND IS RUNNING AT 100MLS/HR. ORDERED. NO C/O VOICED ALL DROPLET PRECAUTIONS IN PLACE.
[2020-07-11] MEDS: PIPERACILLIN/TAZOBACTAM 3.375 GM in DEXTROSE 5% 50 ML IV SCH ×3 (05:55→20:13)
[2020-07-11 07:02] LABS: BASOPHILS % (AUTO) 0.2 % (0.0-2.0); HEMATOCRIT 40.3 % (36-52); HEMOGLOBIN 13.6 g/dL (12.0-18.0); LYMPHOCYTES # (AUTO) 0.9 K/uL (2.0-11.5); LYMPHOCYTES % (AUTO) 5.4 % (20.5-51.1); MEAN CORPUSCULAR HEMOGLOBIN 30 pg (27-31); MEAN CORPUSCULAR HGB CONC 34 g/dL (33-37); MONOCYTES # (AUTO) 0.7 K/uL (0.8-1.0); MONOCYTES % (AUTO) 4.3 % (1.7-9.3); NEUTROPHILS # (AUTO) 14.5 K/uL (1.8-7.7); NEUTROPHILS % (AUTO) 90.1 % (42.2-75.2); PLATELET COUNT (AUTO) 270 K/uL (140-450); RED BLOOD CELL COUNT(AUTO) 4.58 MIL/uL (4.20-6.10); RED CELL DISTRIBUTION WIDTH 13.6 % (11.6-13.7)
--- NOTE | 2020-07-11 07:21 | NUR ---
RECEIVED ENDORSEMENT FROM NIGHT, AWAKE, ALERT, ORIENTED X4, ON HIGH FLOW METER OF O2 AT 30%, SATURATING AT 88-89%. NON LABORED BREATHING NOTED. WITH IV CANNULA G20 AT RT FOREARM NOTED, ON SALINE LOCK.ON DROPLET ISOLATION, DX WITH COVID POSITIVE. SAFETY MEASURES IN PLACE AND CONTINUE MONITOR.
[2020-07-11 07:29] LABS: ANION GAP 12.9 (8-16); CARBON DIOXIDE 26.5 mmol/L (21-32); CREATININE 0.9 mg/dL (0.6-1.3); POTASSIUM 4.4 mmol/L (3.5-5.1)
[2020-07-11 08:00] VITALS: BP 112/72
[2020-07-11] MEDS: ASCORBIC ACID 500 MG TAB PO SCH (09:23)
[2020-07-11] MEDS: ZINC SULF 220 MG CAP PO SCH (09:24)
[2020-07-11] MEDS: lisinopriL 10 MG TAB PO SCH (09:24)
--- NOTE | 2020-07-11 09:32 | NUR ---
FULLY AWAKE AND ALERT, NO COMPLAINED OF SOB. DUE MEDICATION GIVEN.
--- NOTE | 2020-07-11 11:01 | NUR ---
FULLY AWAKE,ALERT AND WATCHING TV. NOT IN DISTRESS NOTED.
[2020-07-11 12:00] VITALS: BP 97/69
--- NOTE | 2020-07-11 12:36 | NUR ---
VITAL SIGNS TAKEN AND RECORDED, STABLE. LUNCH SERVED AND DUE MEDICATION GIVEN
[2020-07-11] MEDS: NACL 0.9% 1,000 ML IV SCH (13:30)
--- NOTE | 2020-07-11 14:17 | NUR ---
AWAKE AND ALERT, STILL IN HIGH FLOW METER OF O2 SATURATING AT 89%, NOT IN DISTRESS AND SOB CLAIMED
[2020-07-11 16:00] VITALS: BP 117/72
--- NOTE | 2020-07-11 16:17 | NUR ---
WATCHING TV, NOT IN DISTRESS NOTED
--- NOTE | 2020-07-11 18:08 | NUR ---
DINNER SERVED WITH REGULAR DIET, ABLE TO CONSUMED 75% OF FOOD.
--- NOTE | 2020-07-11 19:16 | NUR ---
ENDORSED TO LEAD DRIVER IN STABLE CONDITION FOR CONTINUITY OF CARE.
--- NOTE | 2020-07-11 19:20 | NUR ---
RECEIVED REPORT FROM AM NURSE. PT COMFORTABLY SITTING IN BED, ABLE TO MAKE NEEDS KNOWS. AAOX4. NO ACUTE DISTRESS, NO SOB NOTED. DENIES PAIN OR DISCOMFORT AT THIS TIME. RESPIRATIONS EVEN AND NON LABORED. ON HIGH FLOW METER 30L OF O2 AND FIO2 100%, SATTING 89-90%. PT HAS LFA IV ACCESS 24G, INTACT AND PATENT, RUNNING NS @20 ML/HR. SKIN WARM, DRY AND INTACT. OBSERVED DROPLET PRECAUTION ISOLATION. ALL SAFETY MEASURES IN PLACED, BED IN LOWEST POSITION, SIDE RAILS UP X2. WILL CONTINUE TO MONITOR.
[2020-07-11 20:00] VITALS: BP 102/60
--- NOTE | 2020-07-11 20:04 | NUR ---
DR LAWRENCE SEEN PT, WITH NO NEW ORDERS MADE.
--- NOTE | 2020-07-11 20:14 | NUR ---
DUE MEDS HEPARIN SUBQ AND ATB ZOSYN IVP WAS GIVEN. PT TOLERATING WELL. DENIES PAIN OR DISCOMFORT AT THIS TIME. DROPLET PRECAUTION IN PLACED, PROPER PPE OBSERVED. CALL LIGHT WITHIN REACH. WILL CONTINUE TO MONITOR.
[2020-07-12] VITALS: BP 102/58
--- NOTE | 2020-07-12 | NUR ---
VITAL SIGNS ARE WITHIN NORMAL LIMITS. ALL SAFETY MEASURES ARE IN PLACE.
--- NOTE | 2020-07-12 02:00 | NUR ---
PT ON BED, WATCHING ON HIS PHONE. DENIES ANY PAIN OR DISCOMFORT. SAFETY MEASURES IN PLACED. CALL LIGHT WITHIN REACH. WILL CONTINUE TO MONITOR.
[2020-07-12 04:00] VITALS: BP 102/61
--- NOTE | 2020-07-12 04:00 | NUR ---
PT IS SLEEPING IN BED, COMFORTABLY. NO S/S OF RESPIRATORY DISTRESS NOTED. WILL CONTINUE TO MONITOR.
[2020-07-12] MEDS: PIPERACILLIN/TAZOBACTAM 3.375 GM in DEXTROSE 5% 50 ML IV SCH ×3 (04:38→20:37)
--- NOTE | 2020-07-12 04:38 | NUR ---
ATB ZOSYN ADMINISTERED VIA IVP. V/S WITHIN NORMAL LIMIT. AFEBRILE. ON HIGH FLOW 15L SATTING 87%. WILL CONTINUE TO MONITOR. Addendum: 07/12/20 at 0600 by Leanne Napier RN ZOSYN VIA IVPB
[2020-07-12 05:31] LABS: BASOPHILS % (AUTO) 0.1 % (0.0-2.0); HEMOGLOBIN 14.8 g/dL (12.0-18.0); LYMPHOCYTES # (AUTO) 1.8 K/uL (2.0-11.5); LYMPHOCYTES % (AUTO) 9.6 % (20.5-51.1); MEAN CORPUSCULAR HEMOGLOBIN 30 pg (27-31); MEAN CORPUSCULAR HGB CONC 34 g/dL (33-37); MEAN CORPUSCULAR VOLUME 88.7 fL (80-94); MONOCYTES # (AUTO) 0.7 K/uL (0.8-1.0); MONOCYTES % (AUTO) 3.7 % (1.7-9.3); NEUTROPHILS % (AUTO) 86.6 % (42.2-75.2); PLATELET COUNT (AUTO) 322 K/uL (140-450); RED BLOOD CELL COUNT(AUTO) 4.96 MIL/uL (4.20-6.10); RED CELL DISTRIBUTION WIDTH 13.6 % (11.6-13.7); WHITE BLOOD COUNT (AUTO) 18.5 K/uL (4.8-10.8)
[2020-07-12 05:59] LABS: MAGNESIUM 2.1 mg/dL (1.8-2.4); PHOSPHORUS 4.5 mg/dL (2.5-4.9)
[2020-07-12 06:00] LABS: ANION GAP 11.2 (8-16); CARBON DIOXIDE 30.2 mmol/L (21-32); CREATININE 0.9 mg/dL (0.6-1.3); POTASSIUM 4.4 mmol/L (3.5-5.1)
--- NOTE | 2020-07-12 06:35 | NUR ---
PT IN BED LYING COMFORTABLY, NO PAIN OR DISCOMFORT NOTED. NO SOB, NO ACUTE DISTRESS NOTED. SAFETY MEASURES IN PLACED. CALL LIGHT WITHIN REACH. WILL CONTINUE TO MONITOR.
--- NOTE | 2020-07-12 07:22 | NUR ---
ENDORSED PT TO AM NURSE ,IN STABLE CONDITION, FOR CONTINUITY OF CARE.
--- NOTE | 2020-07-12 07:25 | NUR ---
RECEIVED PATIENT FROM NIGHT NURSE. PATIENT SITTING UP IN BED TALKING TO GENERAL INTERNIST. RESP EVEN AND UNLABORED ON HIGH FLOW, O2 SAT 89-90%. NO NOTED DISTRESS AT THIS TIME. PATIENT IS ABLE TO MAKE NEEDS KNOWN. NS 20ML/HR INFUSING WELL TO LFA IV ACCESS. DROPLET PRECAUTION OBSERVED. SAFETY MEASURES IN PLACE. CALL LIGHT WITHIN REACH. WILL CONTINUE TO MONITOR.
[2020-07-12 08:00] VITALS: BP 112/74
[2020-07-12] MEDS: ASCORBIC ACID 500 MG TAB PO SCH (08:41)
[2020-07-12] MEDS: lisinopriL 10 MG TAB PO SCH (08:41)
[2020-07-12] MEDS: ZINC SULF 220 MG CAP PO SCH (08:42)
--- NOTE | 2020-07-12 08:58 | NUR ---
MORNING ROUTINE MEDICATIONS GIVEN. PATIENT TOLERATED WELL. RESP EVEN AND UNLABORED ON HIGH FLOW, O2SAT 93%. PATIENT DENIES OF PAIN AT THIS TIME. ABLE TO MAKE NEEDS KNOWN. LFA ACCESS INTACT AND PATENT, INFUSING WELL. SKIN IS WARM TO TOUCH AND INTACT. PLAN OF CARE DISCUSSED WITH PATIENT. PATIENT VERBALIZED UNDERSTANDING. SAFETY MEASURES IN PLACE, CALL LIGHT WITHIN REACH. WILL CONTINUE TO MONITOR.
--- NOTE | 2020-07-12 10:40 | NUR ---
PATIENT SLEEPING IN BED. RESP EVEN AND UNLABORED ON 15L NC HIGH FLOW, O2SAT 91%, CHEST RISING. NO NOTED ACUTE S/S OF DISTRESS. CALL LIGHT WITHIN REACH. BED IN LOW POSITION. WILL CONTINUE TO MONITOR.
[2020-07-12 12:00] VITALS: BP 112/65
[2020-07-12] MEDS: NACL 0.9% 1,000 ML IV SCH (13:25)
--- NOTE | 2020-07-12 13:40 | NUR ---
ZOSYN IVPB GIVEN. PATIENT IS AWAKE AND ALERT. DENIES OF PAIN AT THIS TIME. ABLE TO MAKE NEEDS KNOWN. SAFETY MEASURES IN PLACE. WILL CONTINUE TO MONITOR.
--- NOTE | 2020-07-12 14:45 | NUR ---
07/12/20 RD INITIAL ASSESSMENT COMPLETED PLEASE REFER TO NUTRITION ASSESSMENT UNDER CARE ACTIVITY FOR ESTIMATED NUTRITIONAL NEEDS. 1. CONTINUE MECHANICAL SOFT DIET TOLERATED 2. CONTINUE ENSURE TID 3. RD TO FOLLOW-UP 3-5 DAYS, MODERATE RISK ARASH SMITH RD
[2020-07-12 16:00] VITALS: BP 101/61
--- NOTE | 2020-07-12 16:50 | NUR ---
PATIENT SITTING ON CHAIR BY BEDSIDE. LINENS GIVEN WITH DENTISTRY PROFESSOR ASSIST. RESP EVEN AND UNLABORED ON 15L HIGH FLOW. PATIENT AMBULATED TO THE BATHROOM WITH STEADY GAIT. PER PATIENT, O2SAT WENT DOWN TO 87% BUT RECOVERED QUICKLY WITH REST. NO ACUTE DISTRESS AT THIS TIME. CALL LIGHT WITHIN REACH. WILL CONTINUE TO MONITOR.
--- NOTE | 2020-07-12 19:20 | NUR ---
RECIVED PT AAOX4 , NID - O2 SAT WNL . ON HIGH FLOW O2 AT 15LPM /NC . ON TELE MONITOR - SR . IV SITE INTACT AND PATENT . SAFETY MEASURES IN PLACE . DENIES ANY PAIN . SKIN VITILIGO NOTICE ALL OVER TH BODY - SKIN INTACT . POC DISCUSSED AND VERBALIZE UNDERSTANDING . WILL CONT. TO MONITOR .
--- NOTE | 2020-07-12 19:25 | NUR ---
PATIENT SITTING UP IN BED WATCHING TV. IN GOOD SPIRIT. RESP EVEN AND UNLABORED ON 15L HIGH FLOW O2SAT 93%. DENIES OF PAIN AT THIS TIME. ENDORSED PATIENT TO NIGHT NURSE. PATIENT IN STABLE CONDITION.
[2020-07-12 20:00] VITALS: BP 100/60
--- NOTE | 2020-07-12 20:15 | NUR ---
RECEIVED REPORT FROM AM SHIFT. PT SEEN AND ASSESSED. PT ON 30L AND FiO2 100% WITH SPO2 OF 92%. RALES BREATH SOUNDS ON AUSCULTATION. PT IS IN NO APPARENT RESPIRATORY DISTRESS AT THIS TIME. PRN TX NOT INDICATED AT THIS TIME. WILL CONTINUE TO MONITOR PT.
[2020-07-13] VITALS: BP 90/61
--- NOTE | 2020-07-13 | NUR ---
made rounds , no s/sx of acute distress noted .
[2020-07-13 04:00] VITALS: BP 99/61
--- NOTE | 2020-07-13 04:00 | NUR ---
MADE ROUNDS , NO S/SX OF ACUTE DISTRESS NOTED AT THIS TIME .
[2020-07-13] MEDS: PIPERACILLIN/TAZOBACTAM 3.375 GM in DEXTROSE 5% 50 ML IV SCH ×3 (05:56→20:18)
--- NOTE | 2020-07-13 06:00 | NUR ---
NO COMPLAIN MADE .
[2020-07-13 06:04] LABS: BASOPHILS % (AUTO) 0.1 % (0.0-2.0); HEMATOCRIT 41.2 % (36-52); HEMOGLOBIN 13.8 g/dL (12.0-18.0); LYMPHOCYTES # (AUTO) 1.1 K/uL (2.0-11.5); LYMPHOCYTES % (AUTO) 6.1 % (20.5-51.1); MEAN CORPUSCULAR HEMOGLOBIN 30 pg (27-31); MEAN CORPUSCULAR HGB CONC 33 g/dL (33-37); MEAN CORPUSCULAR VOLUME 89.1 fL (80-94); MONOCYTES # (AUTO) 0.8 K/uL (0.8-1.0); MONOCYTES % (AUTO) 4.5 % (1.7-9.3); NEUTROPHILS # (AUTO) 15.6 K/uL (1.8-7.7); NEUTROPHILS % (AUTO) 89.3 % (42.2-75.2); PLATELET COUNT (AUTO) 278 K/uL (140-450); RED BLOOD CELL COUNT(AUTO) 4.62 MIL/uL (4.20-6.10); RED CELL DISTRIBUTION WIDTH 13.6 % (11.6-13.7); WHITE BLOOD COUNT (AUTO) 17.5 K/uL (4.8-10.8)
[2020-07-13 06:16] LABS: ALBUMIN 2.2 g/dL (3.4-5.0); ANION GAP 10.8 (8-16); CARBON DIOXIDE 28.6 mmol/L (21-32); CREATININE 0.9 mg/dL (0.6-1.3); PHOSPHORUS 3.8 mg/dL (2.5-4.9); POTASSIUM 4.4 mmol/L (3.5-5.1); TOTAL BILIRUBIN 0.5 mg/dL (0.0-1.0)
--- NOTE | 2020-07-13 07:12 | NUR ---
ENDORSD TO AM SHIFT - PT - STABLE
--- NOTE | 2020-07-13 07:15 | NUR ---
RECEIVED REPORT FORM NIGHT NURSE PATIENT IS AMBULATORY ON HIGH FLOW 15LPM VIA NC OXYGEN,SKIN VITILIGO, SKIN INTACT IV SITES INTACT AND PATENT. SAFETY MEASURES IN PLACE AND CALL LIGHT WITHIN REACH. WILL CONTINUE TO MONITOR.
[2020-07-13 08:00] VITALS: BP 110/72
--- NOTE | 2020-07-13 10:00 | NUR ---
MEDICATIONS GIVEN AT THIS TIME CHECK VITAL SIGNS PRIOR TO MEDICATION BP 110/72 AL 73. NO DISTRESS NOTED , DENIES PAIN SAFETY MEASURES IN PLACE CALL LIGHT WITHIN REACH. WILL CONTINUE TO MONITOR.
[2020-07-13] MEDS: ZINC SULF 220 MG CAP PO SCH (10:04)
[2020-07-13] MEDS: ASCORBIC ACID 500 MG TAB PO SCH (10:05)
[2020-07-13] MEDS: lisinopriL 10 MG TAB PO SCH (10:05)
[2020-07-13 12:00] VITALS: BP 103/60
--- NOTE | 2020-07-13 12:00 | NUR ---
MADE ROUNDS AT THIS TIME PT IS STABLE MO DISTRESS NOTED
[2020-07-13] MEDS: NACL 0.9% 1,000 ML IV SCH (12:39)
--- NOTE | 2020-07-13 13:20 | NUR ---
MEDICATIONS DUE GIVEN AND CHECK VITAL SIGNS BP 103/60 CA 67 NO DISTRESS NOTED DENIES PAIN SAFETY MEASURES IN PLACE AND CALL LIGHT WITHIN REACH. WILL CONTINUE TO MONITOR.
--- NOTE | 2020-07-13 15:00 | NUR ---
MADE ROUNDS AT THIS TIME PT IS STABLE AND NO COMPLAINS OF PAIN
[2020-07-13 16:00] VITALS: BP 98/57
--- NOTE | 2020-07-13 19:10 | NUR ---
ENDORSED TO NIGHT NURSE FOR CONTINUITY OF CARE. PT IS STABLE
[2020-07-13 20:00] VITALS: BP 113/72
--- NOTE | 2020-07-13 20:00 | NUR ---
REPORT RECEIVED FROM DAY SHIFT RN. PT ON HIGH FLOW @ 30L, FIO2 100% SATTING AT HIGH 90'S. RESPIRATION EVEN AND UNLABORED. SYMMETRICAL CHEST EXPANSION. ORAL MUCOSA PINK AND MOIST. SKIN WARM, DRY AND INTACT. PERIPHERAL ACCESS ON THE RIGHT FOREARM G 20. ASYMPTOMATIC, PATENT AND INTACT. DUE MEDICATIONS GIVEN ORDERED. NO DISTRESS OBSERVED. PT DENIES PAIN AND SOB. ABLE TO MAKE NEEDS KNOWN TO STAFF. DROPLET PRECAUTION MAINTAINED. ALL SAFETY MEASURES IN PLACE. WILL CONTINUE TO MONITOR.
[2020-07-13] MEDS: methylPREDNISolone SS 40 MG/ML VIAL IVP SCH (20:17)
--- NOTE | 2020-07-13 22:00 | NUR ---
PT RESTING IN BED. NO CONCERNS AND COMPLAINTS MADE. WILL CONTINUE TO MONITOR.
[2020-07-14] VITALS (7 sets, daily range): BP systolic 94–116; BP diastolic 50–79
--- NOTE | 2020-07-14 01:00 | NUR ---
PT RESTING IN BED AT THIS TIME. NO RESPIRATORY DISTRESS OBSERVED. WILL CONTINUE TO MONITOR PT.
[2020-07-14] MEDS: PIPERACILLIN/TAZOBACTAM 3.375 GM in DEXTROSE 5% 50 ML IV SCH ×3 (05:15→20:05)
--- NOTE | 2020-07-14 05:15 | NUR ---
ZOSYN HUNG AND INFUSING AT THIS TIME. PT STATED. HE FEELS BETTER TODAY. NO CONCERNS AND COMPLAINTS MADE. WILL CONTINUE TO MONITOR.
[2020-07-14 05:49] LABS: EOSINOPHILS % (AUTO) 0.1 % (0.0-4.0); HEMATOCRIT 43.1 % (36-52); HEMOGLOBIN 14.2 g/dL (12.0-18.0); LYMPHOCYTES # (AUTO) 0.7 K/uL (2.0-11.5); LYMPHOCYTES % (AUTO) 5.1 % (20.5-51.1); MEAN CORPUSCULAR HEMOGLOBIN 30 pg (27-31); MEAN CORPUSCULAR HGB CONC 33 g/dL (33-37); MEAN CORPUSCULAR VOLUME 90.1 fL (80-94); MONOCYTES # (AUTO) 0.2 K/uL (0.8-1.0); MONOCYTES % (AUTO) 1.8 % (1.7-9.3); NEUTROPHILS # (AUTO) 12.8 K/uL (1.8-7.7); PLATELET COUNT (AUTO) 255 K/uL (140-450); RED BLOOD CELL COUNT(AUTO) 4.78 MIL/uL (4.20-6.10); RED CELL DISTRIBUTION WIDTH 13.8 % (11.6-13.7); WHITE BLOOD COUNT (AUTO) 13.8 K/uL (4.8-10.8)
[2020-07-14 06:07] LABS: MAGNESIUM 1.9 mg/dL (1.8-2.4); PHOSPHORUS 4.3 mg/dL (2.5-4.9)
[2020-07-14 06:10] LABS: ANION GAP 10.3 (8-16); CARBON DIOXIDE 29.3 mmol/L (21-32); CREATININE 0.9 mg/dL (0.6-1.3); POTASSIUM 4.6 mmol/L (3.5-5.1)
--- NOTE | 2020-07-14 07:30 | NUR ---
RECEIVED REPORT FROM [facility] NURSE, ASSUMED CARE. PT RESTING COMFORTABLY WITH NO S/S OF PAIN AND/OR DISTRESS AT THIS TIME. PERSONAL BELONGINGS, BEDSIDE TABLE, CALL LIGHT WITHIN REACH. WILL CONTINUE TO MONITOR.
[2020-07-14] MEDS: ASCORBIC ACID 500 MG TAB PO SCH (09:42)
[2020-07-14] MEDS: lisinopriL 10 MG TAB PO SCH (09:43)
[2020-07-14] MEDS: methylPREDNISolone SS 40 MG/ML VIAL IVP SCH ×2 (09:43→20:04)
[2020-07-14] MEDS: ZINC SULF 220 MG CAP PO SCH (09:43)
[2020-07-14] MEDS: NACL 0.9% 1,000 ML IV SCH (12:58)
--- NOTE | 2020-07-14 20:00 | NUR ---
REPORT RECEIVED FROM DAY SHIFT RN. PT IS ALERT AND ORIENTED. PT ON HIGH FLOW @ 30L, FIO2 100% SATTING AT LOW 90'S. RESPIRATION EVEN AND UNLABORED. SYMMETRICAL CHEST EXPANSION. ORAL MUCOSA PINK AND MOIST. SKIN WARM, DRY AND INTACT. PERIPHERAL ACCESS ON THE LEFT FOREARM G24. ASYMPTOMATIC, PATENT AND INTACT. DUE MEDICATIONS GIVEN ORDERED. NO DISTRESS OBSERVED. PT DENIES PAIN AND SOB. ABLE TO MAKE NEEDS KNOWN TO STAFF. DROPLET PRECAUTION MAINTAINED. ALL SAFETY MEASURES IN PLACE. WILL CONTINUE TO MONITOR.
[2020-07-15] VITALS: BP 126/74
--- NOTE | 2020-07-15 | NUR ---
PT IN NO DISTRESS OBSERVED. TURNED AND REPOSITIONED PT. WILL CONTINUE TO MONITOR.
--- NOTE | 2020-07-15 02:30 | NUR ---
NO DISTRESS OBSERVED. PT RESTING IN BED WITH NO CONCERNS AND COMPLAINTS. WILL CONTINUE TO MONITOR.
[2020-07-15 04:00] VITALS: BP 101/69
[2020-07-15] MEDS: PIPERACILLIN/TAZOBACTAM 3.375 GM in DEXTROSE 5% 50 ML IV SCH ×3 (04:00→20:35)
[2020-07-15 05:29] LABS: BASOPHILS # (AUTO) 0.1 K/uL (0.00-0.22); BASOPHILS % (AUTO) 0.4 % (0.0-2.0); EOSINOPHILS # (AUTO) 0.2 K/uL (0-0.4); EOSINOPHILS % (AUTO) 0.9 % (0.0-4.0); HEMATOCRIT 42.7 % (36-52); HEMOGLOBIN 14.2 g/dL (12.0-18.0); LYMPHOCYTES # (AUTO) 0.5 K/uL (2.0-11.5); LYMPHOCYTES % (AUTO) 2.4 % (20.5-51.1); MEAN CORPUSCULAR HEMOGLOBIN 30 pg (27-31); MEAN CORPUSCULAR HGB CONC 33 g/dL (33-37); MONOCYTES # (AUTO) 0.5 K/uL (0.8-1.0); MONOCYTES % (AUTO) 2.6 % (1.7-9.3); NEUTROPHILS % (AUTO) 93.7 % (42.2-75.2); PLATELET COUNT (AUTO) 266 K/uL (140-450); RED BLOOD CELL COUNT(AUTO) 4.74 MIL/uL (4.20-6.10); RED CELL DISTRIBUTION WIDTH 13.7 % (11.6-13.7); WHITE BLOOD COUNT (AUTO) 19.2 K/uL (4.8-10.8)
--- NOTE | 2020-07-15 06:41 | NUR ---
GOT A CRITICAL RESULT FROM LAB LACTIC ACID 2.3. DR. LOPEZ INFORMED NO NEW ORDERS.
--- NOTE | 2020-07-15 07:15 | NUR ---
RECEIVED REPORT FROM REDUCTION FURNACE OPERATOR HELPER NURSE JENNY/VINAYAK FOR CONTINUITY OF CARE. PATIENT IN STABLE CONDITION. RESPIRATIONS EVEN AND UNLABORED, HIGH FLOW NC AT 30LPM. IV INTACT AND PATENT. SAFETY MEASURES IN PLACE. BED IN LOW POSITION.CALL LIGHT WITHIN REACH. WILL CONTINUE TO MONITOR.
[2020-07-15 07:26] LABS: ALBUMIN 2.3 g/dL (3.4-5.0); ANION GAP 13.7 (8-16); CARBON DIOXIDE 27.1 mmol/L (21-32); MAGNESIUM 2.2 mg/dL (1.8-2.4); PHOSPHORUS 3.9 mg/dL (2.5-4.9); POTASSIUM 4.8 mmol/L (3.5-5.1); TOTAL BILIRUBIN 0.4 mg/dL (0.0-1.0)
[2020-07-15 08:00] VITALS: BP 132/76
--- NOTE | 2020-07-15 09:30 | NUR ---
GAVE WATER PER PATIENT REQUEST. PATIENT IN STABLE CONDITION. BED IN LOW POSITION. CALL LIGHT WITHIN REACH. WILL CONTINUE TO MONITOR.
[2020-07-15] MEDS: methylPREDNISolone SS 40 MG/ML VIAL IVP SCH ×2 (10:05→20:40)
[2020-07-15] MEDS: lisinopriL 10 MG TAB PO SCH (10:05)
[2020-07-15] MEDS: ASCORBIC ACID 500 MG TAB PO SCH (10:06)
[2020-07-15] MEDS: ZINC SULF 220 MG CAP PO SCH (10:11)
[2020-07-15 12:00] VITALS: BP 124/66
--- NOTE | 2020-07-15 12:45 | NUR ---
PATIENT ATE 100% LUNCH AND WATCHING TV AT THIS TIME. RESPIRATIONS EVEN AND UNLABORED. BED IN LOW POSITION. CALL LIGHT WITHIN REACH. WILL CONTINUE TO MONITOR.
[2020-07-15] MEDS: NACL 0.9% 1,000 ML IV SCH (12:53)
--- NOTE | 2020-07-15 15:33 | NUR ---
PATIENT SLEEPING AT THIS TIME. RESPIRATIONS EVEN AND UNLABORED. BED IN LOW POSITION. CALL LIGHT WITHIN REACH. WILL CONTINUE TO MONITOR.
[2020-07-15 16:00] VITALS: BP 108/64
--- NOTE | 2020-07-15 19:37 | NUR ---
GAVE REPORT TO INGOT PASSER NURSE FOR CONTINUITY OF CARE. PATIENT IN STABLE CONDITION.
[2020-07-15 20:00] VITALS: BP 104/58
--- NOTE | 2020-07-15 20:00 | NUR ---
RECEIVED BEDSIDE REPORT FROM DAY RN FOR CONTINUITY OF CARE.PT A/A/OX4, SITTING UPRIGHT IN BED WATCHING TV. PT SPEAKS MOSTLY SAMI BUT ABLE TO VERBALIZED NEEDS WITH SIMPLE CYMRAES. PT DENIES ANY PAIN, CHEST PAIN, SOB, PALPITATIONS AND DIZZINESS. VSS, AFEBRILE, SATING 96% ON 30L HIGH FLOW OXYGEN VIA NC. IVF NS RUNNING @ 20 CC/HR ORDERED. NO COMPLAIN AT THIS TIME. ISOLATION PRECAUTION IMPLEMENTED.CALL LIGHT WITHIN REACH. WILL CONTINUE POC AND MONITORING.
--- NOTE | 2020-07-15 22:00 | NUR ---
ADMINISTERED ALL SCHEDULED MEDICATIONS ORDERED. PT TOLERATED IT WELL.NO COMPLAIN OF PAIN AT THIS TIME. CALL LIGHT WITHIN REACH.
[2020-07-16] VITALS: BP 110/66
--- NOTE | 2020-07-16 | NUR ---
PATIENT VITAL SIGNS STABLE, AFEBRILE,SATING 96% ON HIGH FLOW O2. SR ON HEARING CARE PROFESSIONAL, HR-70. NO COMPLAIN OF PAIN AT THIS TIME. CALL LIGHT WITHIN REACH.
--- NOTE | 2020-07-16 02:10 | NUR ---
MADE ROUNDS. PT ASLEEP. NOT IN ANY DISTRESS. VISIBLE CHEST RISE AND FALL NOTED. WILL CONTINUE TO MONITOR.
[2020-07-16 04:00] VITALS: BP 112/66
--- NOTE | 2020-07-16 04:00 | NUR ---
PATIENT VITAL SIGNS STABLE, AFEBRILE, SATING 92% ON HIGH FLOW O2 30L VIA NC. NO SIGN AND SYMPTOMS OF DISTRESS NOTED. NO COMPLAIN FROM THE PT. SINUS BRADYCARDIA ON HEALTHCARE BUSINESS ANALYST, HR-59. SAFETY MEASURES IN PLACED.
[2020-07-16] MEDS: PIPERACILLIN/TAZOBACTAM 3.375 GM in DEXTROSE 5% 50 ML IV SCH (05:08)
--- NOTE | 2020-07-16 06:16 | NUR ---
PATIENT STABLE. NO SIGN AND SYMPTOMS OF DISTRESS NOTED. NO COMPLAIN AT THIS TIME. ALL NEEDS ATTENDED. CALL LIGHT WITHIN REACH. WILL ENDORSE THE PT TO THE ONCOMING RN FOR CONTINUITY OF CARE.
[2020-07-16 07:25] LABS: BASOPHILS # (AUTO) 0.1 K/uL (0.00-0.22); BASOPHILS % (AUTO) 0.4 % (0.0-2.0); HEMATOCRIT 42.3 % (36-52); LYMPHOCYTES # (AUTO) 0.7 K/uL (2.0-11.5); LYMPHOCYTES % (AUTO) 4.5 % (20.5-51.1); MEAN CORPUSCULAR HEMOGLOBIN 30 pg (27-31); MEAN CORPUSCULAR HGB CONC 33 g/dL (33-37); MEAN CORPUSCULAR VOLUME 90.2 fL (80-94); MONOCYTES # (AUTO) 0.7 K/uL (0.8-1.0); MONOCYTES % (AUTO) 4.7 % (1.7-9.3); NEUTROPHILS # (AUTO) 14.2 K/uL (1.8-7.7); NEUTROPHILS % (AUTO) 90.4 % (42.2-75.2); PLATELET COUNT (AUTO) 220 K/uL (140-450); RED BLOOD CELL COUNT(AUTO) 4.69 MIL/uL (4.20-6.10); RED CELL DISTRIBUTION WIDTH 14.1 % (11.6-13.7); WHITE BLOOD COUNT (AUTO) 15.8 K/uL (4.8-10.8)
--- NOTE | 2020-07-16 07:30 | NUR ---
Endorsed patient to the oncoming Rn for continuity of care. Patient stable. Signing off.
--- NOTE | 2020-07-16 07:35 | NUR ---
RECEIVED REPORT FROM PM RN, [place]. PT CAME FROM HOME. ALBANIAN SPEAKING ONLY. CC: SOUGH AND FEVER. DX: COVID19+, HYPOXIA. NO PMHX. NKA. FULL CODE. LT FA 24G RUNNING NS @ 20. REGULAR DIET. HI FLOW NC RUNNING 30L. O2 SAT 91-96. SKIN IS INTACT. PT IS AMBULATORY. PT REFUSED SECOND DOSE OF PLASMA. PLAN: MONITOR O2 SAT.
[2020-07-16 08:00] VITALS: BP 110/66
[2020-07-16 08:08] LABS: CARBON DIOXIDE 30.6 mmol/L (21-32); CREATININE 0.8 mg/dL (0.6-1.3); POTASSIUM 4.6 mmol/L (3.5-5.1)
[2020-07-16 08:15] LABS: MAGNESIUM 2.2 mg/dL (1.8-2.4); PHOSPHORUS 4.1 mg/dL (2.5-4.9)
[2020-07-16] MEDS: ZINC SULF 220 MG CAP PO SCH (09:00)
[2020-07-16] MEDS: ASCORBIC ACID 500 MG TAB PO SCH (09:00)
[2020-07-16] MEDS: lisinopriL 10 MG TAB PO SCH (09:00)
[2020-07-16] MEDS: methylPREDNISolone SS 40 MG/ML VIAL IVP SCH ×2 (09:59→21:38)
--- NOTE | 2020-07-16 10:00 | NUR ---
PASSED MEDICATIONS TO PT. PT TOLERATED WELL. NO COMPLAINTS OF PAIN. PT IS NOT IN DISTRESS. VS STABLE.
--- NOTE | 2020-07-16 10:58 | NUR ---
07/16/20 RD FOLLOW UP COMPLETED PLEASE REFER TO NUTRITION ASSESSMENT UNDER CARE ACTIVITY FOR ESTIMATED NUTRITIONAL NEEDS. 1. CONTINUE MECHANICAL SOFT DIET TOLERATED 2. CONTINUE ENSURE TID 3. RD TO FOLLOW-UP 3-5 DAYS, MODERATE RISK ORTIZ MILLER RD
[2020-07-16 12:00] VITALS: BP 149/66
--- NOTE | 2020-07-16 12:00 | NUR ---
CHECKED PTS VS. VS STABLE. PT IS SOB DUE TO WASHING HAIR. PT IS RESTING IN BED. TAKING DEEP BREATHS. NO SIGNS OF DISTRESS. NO COMPLAINTS OF PAIN.
[2020-07-16] MEDS: NACL 0.9% 1,000 ML IV SCH (12:53)
[2020-07-16 16:00] VITALS: BP 122/64
--- NOTE | 2020-07-16 16:00 | NUR ---
CHECKED VS. PT IS NOT IN DISTRESS. PT IS SATURATING WELL @ 94%. NO COMPLAINTS OF PAIN. CHANGED IV BAG.
[2020-07-16] MEDS ORDERED: ALBUTEROL HFA MDI 90 MCG/ACTUATION 8 GM INH PRN (16:30)
--- NOTE | 2020-07-16 19:00 | NUR ---
transfer of care to rn, pa. pt is resting in bed. no complaints of pain. no signs of distress.
--- NOTE | 2020-07-16 19:42 | NUR ---
PT SITTING UP IN BED WATCHING TV NO S/S OF DISTRESS AT THIS TIME WATER IS 1/2 FULL SPO2 93% HR 92 ON HFNC 30L 100%
--- NOTE | 2020-07-16 19:49 | NUR ---
RECEIVED CONTINUITY OF CARE FROM AM NURSE. PT IS FILIPINO SPEAKING, A/OX 4, BREATHING SPONTANEOUSLY ON 30L 02 VIA HIGH FLOW NC. PT IS AMBULATORY, SKIN IS WARM, DRY, INTACT. LEFT FOREARM IV 24G, PATENT, ASYMPTOMATIC, INTACT, INFUSING NS AT 20ML/HR. ORIENTED PT TO STAFF, ROOM, AND CALL LIGHT. ALL STAFF TO OBSERVE ISOLATION PRECAUTIONS. SAFETY PRECAUTIONS IN PLACE. CALL LIGHT WITHIN REACH.
[2020-07-16 20:00] VITALS: BP 114/59
--- NOTE | 2020-07-16 21:05 | NUR ---
ADMINISTERED SCHEDULED MEDS. EDUCATION WAS GIVEN. PT TOLERATED IT WELL. BED IN LOW POSITION, CALL LIGHT WITHIN REACH.
--- NOTE | 2020-07-16 23:12 | NUR ---
CHECKED ON PT. PT IS SLEEPING. NO SIGNS OF DISTRESS NOTED.
[2020-07-17] VITALS: BP 107/63
--- NOTE | 2020-07-17 00:03 | NUR ---
PT IS SLEEPING. VISIBLE CHEST RISE NOTED.
--- NOTE | 2020-07-17 02:06 | NUR ---
CHECKED ON PT. PT IS SLEEPING. NO SIGNS OF DISTRESS NOTED.
[2020-07-17 04:00] VITALS: BP 101/65
--- NOTE | 2020-07-17 04:15 | NUR ---
PT IS SLEEPING. NO SIGNS OF DISTRESS AT THIS TIME.
[2020-07-17 06:46] LABS: BASOPHILS # (AUTO) 0.1 K/uL (0.00-0.22); BASOPHILS % (AUTO) 0.7 % (0.0-2.0); HEMATOCRIT 41.9 % (36-52); HEMOGLOBIN 14.2 g/dL (12.0-18.0); LYMPHOCYTES # (AUTO) 0.6 K/uL (2.0-11.5); MEAN CORPUSCULAR HEMOGLOBIN 30 pg (27-31); MEAN CORPUSCULAR HGB CONC 34 g/dL (33-37); MEAN CORPUSCULAR VOLUME 89.1 fL (80-94); MONOCYTES # (AUTO) 0.5 K/uL (0.8-1.0); MONOCYTES % (AUTO) 4.1 % (1.7-9.3); PLATELET COUNT (AUTO) 187 K/uL (140-450); WHITE BLOOD COUNT (AUTO) 11.2 K/uL (4.8-10.8)
[2020-07-17 07:07] LABS: ALBUMIN 2.3 g/dL (3.4-5.0); ANION GAP 8.5 (8-16); CARBON DIOXIDE 32.2 mmol/L (21-32); CREATININE 0.8 mg/dL (0.6-1.3); MAGNESIUM 2.2 mg/dL (1.8-2.4); PHOSPHORUS 4.1 mg/dL (2.5-4.9); POTASSIUM 4.7 mmol/L (3.5-5.1); TOTAL BILIRUBIN 0.6 mg/dL (0.0-1.0)
--- NOTE | 2020-07-17 07:29 | NUR ---
ENDORSED CARE TO AM NURSE. PT IS IN STABLE CONDITION.
--- NOTE | 2020-07-17 07:30 | NUR ---
RECEIVED ENDORSEMENT FROM LABORER PETROLEUM REFINERY, AWAKE,ALERT,ORIENTED X4, WITH O2 ATTACHED HIGH FLOW METER, 30L AND 100%FIO2, NON LABORED BREATHING NOTED. WITH ONGOING IV FLUID 0.9% NS 20ML/HOUR INFUSING AT LEFT FOREARM G24 IV CANNULA NOTED. SAFETY MEASURES IN PLACE AND CONTINUE MONITOR.
[2020-07-17 07:32] LABS: LYMPHOCYTES % (AUTO) 5.2 % (20.5-51.1)
[2020-07-17 08:00] VITALS: BP 149/68
[2020-07-17] MEDS: methylPREDNISolone SS 40 MG/ML VIAL IVP SCH ×2 (08:42→20:49)
[2020-07-17] MEDS: VITAMIN D 400 IU TAB PO SCH (08:43)
[2020-07-17] MEDS: ASCORBIC ACID 500 MG TAB PO SCH (08:43)
[2020-07-17] MEDS: lisinopriL 10 MG TAB PO SCH (08:43)
[2020-07-17] MEDS: ZINC SULF 220 MG CAP PO SCH (08:43)
--- NOTE | 2020-07-17 08:56 | NUR ---
FULLY AWAKE AND ALERT, NON LABORED BREATHING NOTED. DUE MEDICATION GIVEN
[2020-07-17 12:00] VITALS: BP 124/74
--- NOTE | 2020-07-17 12:28 | NUR ---
FULLY AWAKE AND ALERT, VITAL SIGNS TAKEN AND RECORDED, STABLE. LUNCH SERVED
[2020-07-17] MEDS: NACL 0.9% 1,000 ML IV SCH (12:53)
--- NOTE | 2020-07-17 14:29 | NUR ---
AWAKE ON BED, WATCHING TV, NOT IN DISTRESS NOTED.
[2020-07-17 16:00] VITALS: BP 123/74
--- NOTE | 2020-07-17 16:55 | NUR ---
AMBULATRORY TO TOILET, VOIDED FREELY CLAIMED, NOT IN DISTRESS NOTED.
--- NOTE | 2020-07-17 18:06 | NUR ---
HAVING HIS DINNER, NON LABORED BREATHING NOTED
--- NOTE | 2020-07-17 19:22 | NUR ---
ENDORSED TO CHILD SUPPORT SPECIALIST IN STABLE CONDITION FOR CONTINUITY OF CARE
[2020-07-17 20:00] VITALS: BP 114/74
--- NOTE | 2020-07-17 20:14 | NUR ---
PT RESTING IN BED WATCHING TV PT DENIES ANY DISTRESS AT THIS TIME SPO2 95% ON 30L HFNC 100% FIO2 HR 93 WATER / FULL WILL RETURN AT A LATER TIME TO REPLACE WATER ON HF
--- NOTE | 2020-07-17 20:40 | NUR ---
ADMINISTERED SCHEDULED MEDICATION. EDUCATION WAS GIVEN. PT VERBALIZED AGREEMENT TO TAKE MEDS. PT TOLERATED IT WELL.
[2020-07-17] MEDS ORDERED: methylPREDNISolone SS 40 MG/ML VIAL ONE (20:41)
--- NOTE | 2020-07-17 22:05 | NUR ---
LEAD ASSISTANT MANAGER REPORTED THAT PT IS OFF TELE MONITOR. MADE ASSESSMENT AND REATTACHED TELE MONITOR. PT IS IN STABLE CONDITION.
[2020-07-18] VITALS: BP 116/69
--- NOTE | 2020-07-18 00:23 | NUR ---
PT IS SLEEPING. NO SIGNS OF DISTRESS NOTED AT THIS TIME.
--- NOTE | 2020-07-18 02:15 | NUR ---
PT IS SLEEPING. VISIBLE CHEST RISE NOTED.
--- NOTE | 2020-07-18 03:59 | NUR ---
PT IS SLEEPING. NO SIGNS OF DISTRESS NOTED.
[2020-07-18 04:00] VITALS: BP 105/61
[2020-07-18 05:33] LABS: BASOPHILS % (AUTO) 0.2 % (0.0-2.0); HEMATOCRIT 43.4 % (36-52); HEMOGLOBIN 14.5 g/dL (12.0-18.0); LYMPHOCYTES # (AUTO) 0.6 K/uL (2.0-11.5); LYMPHOCYTES % (AUTO) 5.1 % (20.5-51.1); MEAN CORPUSCULAR HEMOGLOBIN 30 pg (27-31); MEAN CORPUSCULAR HGB CONC 33 g/dL (33-37); MONOCYTES # (AUTO) 0.4 K/uL (0.8-1.0); MONOCYTES % (AUTO) 3.7 % (1.7-9.3); NEUTROPHILS # (AUTO) 10.5 K/uL (1.8-7.7); PLATELET COUNT (AUTO) 198 K/uL (140-450); RED BLOOD CELL COUNT(AUTO) 4.83 MIL/uL (4.20-6.10); RED CELL DISTRIBUTION WIDTH 14.1 % (11.6-13.7); WHITE BLOOD COUNT (AUTO) 11.6 K/uL (4.8-10.8)
--- NOTE | 2020-07-18 05:52 | NUR ---
PT AWAKE IN BED WATCHING TV AND DENIES ANY DISTRESS AT THIS TIME WATER ON HFNC WAS REPLACED AND PT REMAINS ON 30L FIO2 100%
[2020-07-18 06:27] LABS: ALBUMIN 2.3 g/dL (3.4-5.0); ANION GAP 13.6 (8-16); CARBON DIOXIDE 26.1 mmol/L (21-32); CREATININE 0.8 mg/dL (0.6-1.3); MAGNESIUM 2.1 mg/dL (1.8-2.4); PHOSPHORUS 3.9 mg/dL (2.5-4.9); POTASSIUM 4.7 mmol/L (3.5-5.1); TOTAL BILIRUBIN 0.5 mg/dL (0.0-1.0)
--- NOTE | 2020-07-18 07:01 | NUR ---
LAB CALLED TO REPORT THAT LACTIC ACID IS 2.2. THERE IS NO CHANGE.
--- NOTE | 2020-07-18 07:20 | NUR ---
RECEIVED REPORT FROM PM RN, PA. PT CAME FROM HOME. MONGOLIAN SPEAKING ONLY. CC: SOUGH AND FEVER. DX: COVID19+, HYPOXIA. NO PMHX. NKA. FULL CODE. LT FA 24G RUNNING NS @ 20. REGULAR DIET. HI FLOW NC RUNNING 30L. O2 SAT 91-96. SKIN IS INTACT. PT IS AMBULATORY. PT REFUSED SECOND DOSE OF PLASMA. PLAN: MONITOR O2 SAT, WEEN OFF O2, MONITOR LACTIC ACID.
--- NOTE | 2020-07-18 07:35 | NUR ---
ENDORSED CARE TO AM NURSE. PT IS IN STABLE CONDITION.
[2020-07-18 08:00] VITALS: BP 109/66
--- NOTE | 2020-07-18 09:00 | NUR ---
PASSED MEDICATIONS TO PT. PT TOLERATED WELL. NO COMPLAINTS OF PAIN, CHEST PAIN, OR SOB. VS STABLE. PT IS ON 30L HI FLOW NC.
[2020-07-18] MEDS: ASCORBIC ACID 500 MG TAB PO SCH (09:09)
[2020-07-18] MEDS: methylPREDNISolone SS 40 MG/ML VIAL IVP SCH ×2 (09:09→20:59)
[2020-07-18] MEDS: lisinopriL 10 MG TAB PO SCH (09:09)
[2020-07-18] MEDS: VITAMIN D 400 IU TAB PO SCH (09:09)
[2020-07-18] MEDS: ZINC SULF 220 MG CAP PO SCH (09:09)
--- NOTE | 2020-07-18 11:50 | NUR ---
PER DR. KIRBY PT NOW ON 9L OXYZIMER O2 SAT IS 91% RN GABRIELLA NOTIFIED OF CHANGES MADE TO O2
[2020-07-18 12:00] VITALS: BP 115/72
--- NOTE | 2020-07-18 12:00 | NUR ---
CHECKED ON PT. PT IS RESTING IN BED. NO SIGNS OF DISTRESS. NO COMPLAINTS OF PAIN. VS STABLE. CHANGED IV BAG, 50MLS PER HOUR. PT IS NOW ON 10L OXIMIZER PER DR. DANIEL ORDER.
[2020-07-18] MEDS: NACL 0.9% 1,000 ML IV SCH (12:20)
--- NOTE | 2020-07-18 13:24 | NUR ---
PT IS GETTING A CT WITHOUT CONTRAST, ACCOMPANIED BY CT TEAM. INSTRUMENTATION ENGINEER NOTIFIED.
--- NOTE | 2020-07-18 13:30 | NUR ---
PT RETURNED BACK FROM CT VIA WHEEL CHAIR. NO COMPLAINTS OF PAIN. NO COMPLAINTS OF SOB.
--- NOTE | 2020-07-18 15:33 | NUR ---
COMPLETED ROUND, NO COMPLAINTS OF PAIN. PT IS AWAKE IN BED. WATCHING TV. RESPIRATIONS ARE EVEN AND UNLABORED. PT IS SATURATING WELL ON 10L OXIMIZER.
[2020-07-18 16:00] VITALS: BP 110/74
--- NOTE | 2020-07-18 18:08 | NUR ---
COMPLETED ROUND. NO COMPLAINTSOF PAIN. PT IS RESTING IN BED. RESPIRATIONS ARE EVEN CHRIS UNLABORED.
--- NOTE | 2020-07-18 19:21 | NUR ---
TRANSFER OF CARE TO PM JENNY [facility]. PT IS RESTING IN BED. NO SIGNS OF DISTRESS. RESPIRATIONS ARE EVEN AND UNLABORED. VS STABLE. Addendum: 07/18/20 at 1923 by Deb Murray RN RN TRANSFER OF CARE TO PM LAUREN [facility]. NOT PM JENNY [facility].
--- NOTE | 2020-07-18 19:22 | NUR ---
RECEIVED PT FROM GABRIELLA RN PT INDIAN SPEAKER [id number] ON OXYMIZER 10 LTS NOT SOB NOTED AT THIS TIME, IV ON LEFT FA INFUSING WELL INITIAL ASSESSMENT DONE
[2020-07-18 20:00] VITALS: BP 117/69
--- NOTE | 2020-07-18 21:56 | NUR ---
PT MEDICATION GIVEN ORDER PT COOPERATIVE, TO FOLLOW DR DOTY
[2020-07-19] VITALS: BP 121/66
--- NOTE | 2020-07-19 | NUR ---
PT ON CLOSE MONITORING, ON OXYMIZER 10 LTS NOT DISTRES NOTED GETTING SLEEP ON TELEMETRY SR AND PJC
[2020-07-19 04:00] VITALS: BP 114/61
--- NOTE | 2020-07-19 04:00 | NUR ---
PT HAS BEEN MONITORING CLOSE NOT DISTRESS NOTED ON 10 LTS 02 OXYMIZER , ON TELMETRY SSR
[2020-07-19] MEDS: NACL 0.9% 1,000 ML IV SCH (05:29)
--- NOTE | 2020-07-19 05:31 | NUR ---
SPONGE BATH GIVEN LINEN CHANGED REPOSITIONED , GETTING SLEEP ON TELE SR
[2020-07-19 05:40] LABS: BASOPHILS % (AUTO) 0.1 % (0.0-2.0); HEMATOCRIT 42.5 % (36-52); HEMOGLOBIN 14.2 g/dL (12.0-18.0); LYMPHOCYTES # (AUTO) 0.7 K/uL (2.0-11.5); LYMPHOCYTES % (AUTO) 5.6 % (20.5-51.1); MEAN CORPUSCULAR HEMOGLOBIN 30 pg (27-31); MEAN CORPUSCULAR HGB CONC 34 g/dL (33-37); MEAN CORPUSCULAR VOLUME 89.7 fL (80-94); MONOCYTES # (AUTO) 0.4 K/uL (0.8-1.0); MONOCYTES % (AUTO) 3.5 % (1.7-9.3); NEUTROPHILS # (AUTO) 10.7 K/uL (1.8-7.7); NEUTROPHILS % (AUTO) 90.8 % (42.2-75.2); PLATELET COUNT (AUTO) 174 K/uL (140-450); RED BLOOD CELL COUNT(AUTO) 4.74 MIL/uL (4.20-6.10); RED CELL DISTRIBUTION WIDTH 14.2 % (11.6-13.7); WHITE BLOOD COUNT (AUTO) 11.7 K/uL (4.8-10.8)
[2020-07-19 06:11] LABS: ALBUMIN 2.2 g/dL (3.4-5.0); ANION GAP 8.3 (8-16); CARBON DIOXIDE 32.2 mmol/L (21-32); CREATININE 0.9 mg/dL (0.6-1.3); MAGNESIUM 1.9 mg/dL (1.8-2.4); PHOSPHORUS 4.4 mg/dL (2.5-4.9); POTASSIUM 4.5 mmol/L (3.5-5.1); TOTAL BILIRUBIN 0.7 mg/dL (0.0-1.0)
--- NOTE | 2020-07-19 07:00 | NUR ---
PT IS ENDORSED TO DAY SHIFT NURSE FOR CONTINUE OF CARE
--- NOTE | 2020-07-19 07:05 | NUR ---
RECEIVED REPORT FROM NIGHT NURSE PATIENT IS AAOX4 ON 10LPM OXIMIZER HIGH FLOW, AMBULATORY, SKIN INTACT AND IV SITED INTACT AND PATENT ON THE LEFT FA, REGULAR DIET. SAFETY MEASURES IN PLACE AND CALL LIGHT WITHIN REACH. WILL CONTINUE TO MONITOR.
[2020-07-19 08:00] VITALS: BP 120/67
--- NOTE | 2020-07-19 08:50 | NUR ---
MEDICATIONS DUE GIVEN AT THIS TIME. CHECK VITAL SIGNS PRIOR TO MEDICATION BP 120/67 AL 73. NO DISTRESS NOTED, DENIES PAIN AND PATIENT SAID FEELS BETTER.
[2020-07-19] MEDS: ZINC SULF 220 MG CAP PO SCH (08:53)
[2020-07-19] MEDS: methylPREDNISolone SS 40 MG/ML VIAL IVP SCH (08:53)
[2020-07-19] MEDS: ASCORBIC ACID 500 MG TAB PO SCH (08:54)
[2020-07-19] MEDS: VITAMIN D 400 IU TAB PO SCH (08:54)
[2020-07-19] MEDS: lisinopriL 10 MG TAB PO SCH (08:54)
--- NOTE | 2020-07-19 10:15 | NUR ---
AWAKE AND ALERT FOLLOWS RESPIRATOY VERBAL COMMANDS TOLERATED INCENTIVE SPIROMETRY THERAPY WELL WITHOUT COMPLICATIONS NOTED ENCOURAGED PATIENT WITH ACKNOWLEDGEMENT TO USE INCENTIVE SPIROMETRY EVERY 1-2 HOURS WHILE AWAKE
[2020-07-19] MEDS: ALBUTEROL HFA MDI 90 MCG/ACTUATION 8 GM INH PRN (10:22)
[2020-07-19 12:00] VITALS: BP 112/67
--- NOTE | 2020-07-19 12:00 | NUR ---
MADE ROUNDS AT THIS TIME PATIENT IS STABLE AND NO DISTRESS NOTED. PATIENT OXYGEN LEVEL DECREASE FROM 10LPM TO 9LPM PER RT ORDER.
--- NOTE | 2020-07-19 14:25 | NUR ---
AWAKE AND ALERT RESPONSIVE GOOD CHEST RISE NO DISTRESS NOTED SATURATION 94% ON SUPPLEMENTAL OXYGEN AT 9 LPM VIA OXYMIZER TITRATED FIO2 TO 8 LPM DONALD/RN NOTIFIED
--- NOTE | 2020-07-19 15:26 | NUR ---
RESPIRATORY THERAPIST DECREASED OXYGEN LEVEL FROM 9LPM TO 8LPM VIA OXIMIZER WITH OXYGEN SATURATION AT 92%
[2020-07-19 16:00] VITALS: BP 120/67
--- NOTE | 2020-07-19 16:35 | NUR ---
AWAKE AND ALERT VERBALLY RESPONSIVE NO DISTRESS NOTED GOOD CHEST RISE "WATCHING TV" SATURATION 93% ON SUPPLEMENTAL OXYGEN AT 8 LPM VIA OXYMIZER TITRATED FIO2 TO 7 LPM DONALD/RN NOTIFIED ENCOURAGED PATIENT WITH ACKNOWLEDGEMENT TO USE INCENTIVE SPIROMETRY EVERY 1-2 HOURS WHILE AWAKE
--- NOTE | 2020-07-19 16:40 | NUR ---
PATIENT OXYGEN LEVEL DECREASED FROM 8LPM TO 7LPM AT 93% OXYGEN SATURATION NOTED BY RT.
--- NOTE | 2020-07-19 19:12 | NUR ---
ENDORSED TO NIGHT NURSE FOR CONTINUITY OF CARE. PT IS STABLE
--- NOTE | 2020-07-19 19:13 | NUR ---
RECEIVED REPORT FROM DAY SHIFT NURSE. PT IN BED RESTING. PT AMBULATORY, AAOX4, AND ABLE TO MAKE NEEDS KNOWN. RESPIRATIONS ARE EVEN AND UNLABORED TO O2 7LPM/OXIMIZER. SKIN IS WARM, DRY, AND INTACT. ABDOMEN IS SOFT AND NON-TENDER. PT WITH IV ACCESS G24 ON LEFT FOREARM PATENT AND INTACT. IVF INFUSING WELL. PT DENIES ANY PAIN OR DISCOMFORT AT THIS TIME. POC DISCUSSED. PT VERBALIZED UNDERSTANDING. NO REQUESTS MADE AT THIS TIME. PT KEPT COMFORTABLE. SAFETY MEASURES IN PLACE. CALL LIGHT WITHIN REACH. WILL CONTINUE TO MONITOR.
[2020-07-19 20:00] VITALS: BP 112/70
--- NOTE | 2020-07-19 20:34 | NUR ---
VS STABLE. SCHEDULED MEDS GIVEN. RT AT BEDSIDE TITRATED O2 DOWN FROM 7LPM TO 4LPM/OXIMIZER. PT TOLERATING WELL. CURRENT O2 SAT 91%. PT NOT IN DISTRESS AND DENIES ANY DISCOMFORT. NO REQUESTS MADE. WILL CONTINUE TO MONITOR.
--- NOTE | 2020-07-19 20:35 | NUR ---
RECEIVED REPORT FROM AM SHIFT. PT SEEN AND ASSESSED. PT ON 7L OXYMIZER WITH SPO2 OF 96%. TITRATED PT TO 4L OXY WITH SPO2 OF 92%. RALES BREATH SOUNDS ON AUSCULTATION. PT IS IN NO APPARENT RESPIRATORY DISTRESS AT THIS TIME. PRN TX NOT INDICATED AT THIS TIME. WILL CONTINUE TO MONITOR PT.
--- NOTE | 2020-07-19 22:07 | NUR ---
ROUNDS MADE. PT AWAKE IN BED USING HIS PHONE. O2 IN PLACE AT 4LPM/OXIMIZER. CURRENT O2 SAT 91%. PT DENIES ANY DISCOMFORT OR ANY DIFFICULTY IN BREATHING. SAFETY MEASURES IN PLACE. CALL LIGHT WITHIN REACH. WILL CONTINUE TO MONITOR.
[2020-07-20] VITALS: BP 109/66
--- NOTE | 2020-07-20 00:10 | NUR ---
PT IN BED RESTING WITH HOB ELEVATED. O2 4LPM/OXIMIZER IN PLACE. CURRENT O2 SAT 90%. PT DENIES ANY DIFFICULTY IN BREATHING. PT NOT IN DISTRESS. NO REQUESTS MADE. CALL LIGHT WITHIN REACH. WILL CONTINUE TO MONITOR.
--- NOTE | 2020-07-20 02:35 | NUR ---
ROUND MADE. PT IN BED SLEEPING. O2 4LPM/OXIMIZER IN PLACE. PT NOT IN DISTRESS. O2 SAT 91%. NO S/SX OF PAIN OR DISCOMFORT NOTED. PT KEPT COMFORTABLE. CALL LIGHT WITHIN REACH. WILL CONTINUE TO MONITOR.
[2020-07-20 04:00] VITALS: BP 119/73
[2020-07-20] MEDS: NACL 0.9% 1,000 ML IV SCH (04:09)
--- NOTE | 2020-07-20 04:10 | NUR ---
VS STABLE. PT IN BED RESTING WITH O2 4LPM/OXIMIZER ON PLACE. PT NOT IN DISTRESS. DENIES ANY PAIN OR DISCOMFORT AT THIS TIME. NEW IVF BAG HUNG. NO REQUESTS MADE. SAFETY MEASURES IN PLACE. CALL LIGHT WITHIN REACH. WILL CONTINUE TO MONITOR.
[2020-07-20 05:30] LABS: BASOPHILS % (AUTO) 0.2 % (0.0-2.0); EOSINOPHILS # (AUTO) 0.1 K/uL (0-0.4); EOSINOPHILS % (AUTO) 0.5 % (0.0-4.0); HEMATOCRIT 42.7 % (36-52); HEMOGLOBIN 14.2 g/dL (12.0-18.0); LYMPHOCYTES # (AUTO) 1.9 K/uL (2.0-11.5); LYMPHOCYTES % (AUTO) 14.4 % (20.5-51.1); MEAN CORPUSCULAR HEMOGLOBIN 30 pg (27-31); MEAN CORPUSCULAR HGB CONC 33 g/dL (33-37); MEAN CORPUSCULAR VOLUME 89.9 fL (80-94); MONOCYTES # (AUTO) 0.9 K/uL (0.8-1.0); MONOCYTES % (AUTO) 6.5 % (1.7-9.3); NEUTROPHILS # (AUTO) 10.4 K/uL (1.8-7.7); NEUTROPHILS % (AUTO) 78.4 % (42.2-75.2); PLATELET COUNT (AUTO) 164 K/uL (140-450); RED BLOOD CELL COUNT(AUTO) 4.76 MIL/uL (4.20-6.10); RED CELL DISTRIBUTION WIDTH 14.1 % (11.6-13.7); WHITE BLOOD COUNT (AUTO) 13.3 K/uL (4.8-10.8)
--- NOTE | 2020-07-20 05:35 | NUR ---
BLOOD SUGAR 189. INSULIN COVERAGE GIVEN ORDERED. TPN INCREASED TO 85CC/HR. WILL CONTINUE TO MONITOR. Addendum: 07/20/20 at 0702 by Felix Fisher RN DISREGARD NOTE. WRONG PATIENT
[2020-07-20 06:17] LABS: ALBUMIN 2.3 g/dL (3.4-5.0); ANION GAP 5.6 (8-16); CARBON DIOXIDE 31.5 mmol/L (21-32); CREATININE 0.8 mg/dL (0.6-1.3); PHOSPHORUS 3.8 mg/dL (2.5-4.9); POTASSIUM 4.1 mmol/L (3.5-5.1); TOTAL BILIRUBIN 0.6 mg/dL (0.0-1.0)
--- NOTE | 2020-07-20 07:18 | NUR ---
ENDORSED TO DAY SHIFT NURSE FOR CONTINUITY OF CARE.
--- NOTE | 2020-07-20 07:19 | NUR ---
RECEIVED ENDORSEMENT FROM STOCK TRANSFER CLERK,AWAKE,ALERT,ORIENTEDX4,WITH O2 AT4L/MIN VIA OXYMIZER, NON LABORED BREATHING NOTED. WITH ONGOING IV FLUID 0.9% NS AT 50ML/HOUR INFUSING AT LEFT FOREARM G24 IV CANNULA NOTED. SAFETY MEASURES IN PLACE AND CONTINUE MONITOR.
[2020-07-20 08:00] VITALS: BP 118/74
[2020-07-20] MEDS: predniSONE 20 MG TAB PO SCH (08:28)
[2020-07-20] MEDS: VITAMIN D 400 IU TAB PO SCH (08:28)
[2020-07-20] MEDS: lisinopriL 10 MG TAB PO SCH (08:29)
[2020-07-20] MEDS: ASCORBIC ACID 500 MG TAB PO SCH (08:29)
[2020-07-20] MEDS: ZINC SULF 220 MG CAP PO SCH (08:31)
--- NOTE | 2020-07-20 08:42 | NUR ---
FULLY AWAKE AND ALERT, NOT IN DISTRESS NOTED. DUE MEDICATION GIVEN
[2020-07-20] MEDS: ALBUTEROL HFA MDI 90 MCG/ACTUATION 8 GM INH PRN (10:14)
--- NOTE | 2020-07-20 10:14 | NUR ---
AWAKE AND ALERT VERBALLY RESPONSIVE TO PROVIDER ENGAGEMENT EXECUTIVE VERBAL COMMANDS SATURATION 94% ON SUPPLEMENTAL OXYGEN AT 4 LPM VIA OXYMIZER POST THERAPY'S CHANGED OXYGEN DEVICE TO A NASAL CANNULA TOLERATED INCENTIVE SPIROMETRY THERAPY WELL WITHOUT ADVERSE REACTIONS NOTED ENCOURAGED PATIENT WITH ACKNOWLEDGEMENT TO USE INCENTIVE SPIROMETRY EVERY 1-2 HOURS WHILE AWAKE
[2020-07-20 12:00] VITALS: BP 106/53
--- NOTE | 2020-07-20 12:39 | NUR ---
VITAL SIGNS TAKEN AND RECORDED, STABLE.
--- NOTE | 2020-07-20 14:39 | NUR ---
SITTING ON THE CHAIR, NOT IN DISTRESS NOTED, O2 AT 4L/MIN VIA NC.
[2020-07-20 16:00] VITALS: BP 110/64
--- NOTE | 2020-07-20 16:19 | NUR ---
LYING ON BED, VITAL SIGNS STABLE AND NOT IN DISTRESS NOTED.
--- NOTE | 2020-07-20 18:11 | NUR ---
FULLY AWAKE, ALERT AND HAVING HIS DINNER, NOT IN DISTRESS NOTED
--- NOTE | 2020-07-20 19:19 | NUR ---
RECEIVED PT AAOX4 , NID - O2 SAT WNL - W/ O2 AT 4LPM/ NC . DENIES ANY PAIN . IV SITE INTACT AND PATENT . SAFETY MEASURES IN PLACE - CALL LIGHT WITHIN REACH . POC DISCUSSED AND VERBALIZE UNDERSTANDING . WILL CONT. TO MONITOR .
--- NOTE | 2020-07-20 19:20 | NUR ---
ENDORSED TO APPLIANCES SAMPLE MAKER IN STABLE CONDITION FOR CONTINUITY OF CARE
--- NOTE | 2020-07-20 19:21 | NUR ---
RECEIVED REPORT FROM AM SHIFT. PT SEEN AND ASSESSED. PT ON 4L NC WITH SPO2 OF 94%. TITRATED PT TO 3L NC WITH SPO2 OF 92%. RALES BREATH SOUNDS ON AUSCULTATION. PT IS IN NO APPARENT RESPIRATORY DISTRESS AT THIS TIME. PRN TX NOT INDICATED AT THIS TIME. WILL CONTINUE TO MONITOR PT.
[2020-07-20 20:00] VITALS: BP 111/60
--- NOTE | 2020-07-20 22:00 | NUR ---
MADE ROUNDS , O2 SAT WNL . NO COMPLAIN MADE .
[2020-07-21] VITALS: BP 100/60
--- NOTE | 2020-07-21 | NUR ---
MADE ROUNDS . NO S/SX OF ACUTE DISTRESS NOTED . CALL LIGHT WITHIN REACH .
--- NOTE | 2020-07-21 02:00 | NUR ---
SLEEPING - O2 SAT WNL .
[2020-07-21] MEDS: NACL 0.9% 1,000 ML IV SCH (03:57)
[2020-07-21 04:00] VITALS: BP 99/60
--- NOTE | 2020-07-21 04:00 | NUR ---
MADE ROUNDS . NO S/SX OF ACUTE DISTRESS NOTED . CALL LIGHT WITHIN REACH .
[2020-07-21 05:24] LABS: BASOPHILS # (AUTO) 0.1 K/uL (0.00-0.22); BASOPHILS % (AUTO) 0.6 % (0.0-2.0); EOSINOPHILS # (AUTO) 0.1 K/uL (0-0.4); EOSINOPHILS % (AUTO) 1.1 % (0.0-4.0); HEMATOCRIT 42.2 % (36-52); HEMOGLOBIN 14.2 g/dL (12.0-18.0); LYMPHOCYTES # (AUTO) 2.7 K/uL (2.0-11.5); LYMPHOCYTES % (AUTO) 22.6 % (20.5-51.1); MEAN CORPUSCULAR HEMOGLOBIN 30 pg (27-31); MEAN CORPUSCULAR HGB CONC 34 g/dL (33-37); MEAN CORPUSCULAR VOLUME 89.1 fL (80-94); MONOCYTES # (AUTO) 0.7 K/uL (0.8-1.0); MONOCYTES % (AUTO) 5.6 % (1.7-9.3); NEUTROPHILS # (AUTO) 8.5 K/uL (1.8-7.7); NEUTROPHILS % (AUTO) 70.1 % (42.2-75.2); PLATELET COUNT (AUTO) 151 K/uL (140-450); RED BLOOD CELL COUNT(AUTO) 4.73 MIL/uL (4.20-6.10); RED CELL DISTRIBUTION WIDTH 14.2 % (11.6-13.7)
--- NOTE | 2020-07-21 06:00 | NUR ---
RESTING ON BED . NO COMPLAIN MADE . O2 SAT WNL .
[2020-07-21 06:04] LABS: ALBUMIN 2.2 g/dL (3.4-5.0); ANION GAP 8.9 (8-16); CARBON DIOXIDE 32.1 mmol/L (21-32); CREATININE 0.7 mg/dL (0.6-1.3); TOTAL BILIRUBIN 0.6 mg/dL (0.0-1.0)
--- NOTE | 2020-07-21 07:12 | NUR ---
ANG TO AM SHIFT - PT- STABLE . Addendum: 07/21/20 at 2339 by Jimena Bonilla RN THE WORD NDORSD IN ABOVE NURSE'S NOTE IS TYPOGRAPHICALLY ERROR , INSTEAD OF ENDORSED - MARKELL
--- NOTE | 2020-07-21 07:13 | NUR ---
Received report from pm nurse. Pt asleep in bed, respirations even & nonlabored on O2 @ 4Lpm via n/c, responsive to auditory stimuli. Left hand IV 24G intact with ongoing IVF NS @ 50ml/hr. Call light within reach.
--- NOTE | 2020-07-21 07:30 | NUR ---
Patient's SaO2=95% on 4Lpm via n/c. Pt sitting up in bed, no signs of distress, respirations even & nonlabored. O2 titrated down to 2Lpm via n/c, SaO2=92% @ rest.
[2020-07-21 08:00] VITALS: BP 130/76
--- NOTE | 2020-07-21 08:00 | NUR ---
Patient's SaO2 decreased to 86% on O2 @ 2Lpm via n/c with min exertion (repositioning in bed). O2 titrated up to 3Lpm via n/c, SaO2 increased to 90%. Instructed patient to use Incentive Spirometer 10times per hour while awake, to utilize energy conservation techniques (frequent rest periods between ADL tasks, deep breathing exercises). Patient able to return demonstrate proper use of IS.
[2020-07-21] MEDS: VITAMIN D 400 IU TAB PO SCH (09:08)
[2020-07-21] MEDS: ZINC SULF 220 MG CAP PO SCH (09:08)
[2020-07-21] MEDS: predniSONE 20 MG TAB PO SCH (09:08)
[2020-07-21] MEDS: lisinopriL 10 MG TAB PO SCH (09:09)
[2020-07-21] MEDS: ASCORBIC ACID 500 MG TAB PO SCH (09:09)
--- NOTE | 2020-07-21 12:36 | NUR ---
Pt resting in bed, SaO2=94% on O2 @ 3Lpm via n/c. SaO2 decreased to 88% in room air while patient at rest. Reapplied O2 @ 3Lpm via n/c and SaO2 slowly increased to 93%. COVID-19 Antigen specimen obtained from right nares.
[2020-07-21] MEDS ORDERED: PRED20TA6 PO (15:19)
[2020-07-21] MEDS ORDERED: RIVA20TA PO (15:19)
--- NOTE | 2020-07-21 16:00 | NUR ---
Spoke to daughter Maureen on the phone re: discharge order for patient. Per Maureen, she can come in 1hr to transport patient home via private car. Maureen also confirmed that O2 concentrator and tubings have been delivered to patient's home. O2 tank at patient's bedside for home O2. Written and verbal discharge instructions provided to patient: f/u with PCP in 3-5days, COVID-19 self-isolation & droplet precautions, prescriptions for prednisone and xarelto (coupon given). Patient able to repeat teachings provided. Left hand IV 24G discontinued, cannula intact, site with no bleeding covered with gauze.
--- NOTE | 2020-07-21 17:15 | NUR ---
Patient discharged to home at this time. Left unit via wheelchair with portable O2 tank @ 3Lpm via n/c. No signs of distress. Daughter Maureen at front lobby with private car. All belongings with patient upon departure.
== END 2020-07-21 17:15 | disposition home or self-care (01) | DRG 720 ==
LOC: MED 11:30 → MMU 14:08 → MTU 16:21
PROVIDERS: ADMIT Emergency Medicine; ATTEND Emergency Medicine
PROC: XW033E5 Introduction of Remdesivir Anti-infective into Peripheral Vein, Percutaneous Approach, New Technology Group 5 (ICD-10-PCS; 2020-07-05)
PROC: XW13325 Transfusion of Convalescent Plasma (Nonautologous) into Peripheral Vein, Percutaneous Approach, New Technology Group 5 (ICD-10-PCS; principal; 2020-07-08)
DX: A41.9 Sepsis, unspecified organism (principal); U07.1 COVID-19; J96.01 Acute respiratory failure with hypoxia; J12.89 Other viral pneumonia; E87.6 Hypokalemia; E86.0 Dehydration; E43 Unspecified severe protein-calorie malnutrition; Z68.30 Body mass index [BMI] 30.0-30.9, adult; E87.1 Hypo-osmolality and hyponatremia
CPT/HCPCS: 36415; 36600; 71045; 71250; 80048; 80053; 80076; 80305; 81001; 82550; 82728; 82803; 83036; 83605; 83615; 83735; 83880; 84100; 84436; 84439; 84443; 84479; 84484; 85025; 85379; 85384; 85610; 85651; 85730; 86140; 86886; 86900; 86901; 87040; 87070; 87081; 87086; 87205; 87420; 87804; 93005; 96365; 96375; 97110; 97116; 97161-GP; 97530; 99285; J0456; J0696; J1100; J1644; J2543; J2920; J7030; J7060; J7512; P9017; Q0092; U0003-CS

== ENCOUNTER 2021-11-24 08:11 | Day surgery (SDC) | payer OTHER, SELFPAY ==
[~2021-11-24] VITALS: Ht 170.2 cm; Wt 90.7 kg
[~2021-11-24 08:11] MED LIST: AZIT250T3 PO; DEC4 PO
[2021-11-24] MEDS ORDERED: fentaNYL citrate 0.05 MG/ML VIAL ONE (09:30)
[2021-11-24] MEDS ORDERED: LIDOCAINE 2% 100 MG/5 ML UJET TP ONE (09:30)
[2021-11-24] MEDS ORDERED: KETOROLAC 60 MG/2 ML VIAL IM ONE (09:39)
== END 2021-11-24 11:10 | disposition home or self-care (01) ==
LOC: MDS 08:11 → MMU 08:12 → MDS 11:10
PROVIDERS: ATTEND Internal Medicine Gastroenterology
DX: Z12.11 Encounter for screening for malignant neoplasm of colon (principal); K57.30 Diverticulosis of large intestine without perforation or abscess without bleeding; D12.3 Benign neoplasm of transverse colon; L29.0 Pruritus ani; I10 Essential (primary) hypertension; E11.9 Type 2 diabetes mellitus without complications; E78.00 Pure hypercholesterolemia, unspecified; Z79.84 Long term (current) use of oral hypoglycemic drugs; Z79.899 Other long term (current) drug therapy; Z20.822 Contact with and (suspected) exposure to COVID-19
CPT/HCPCS: 45385; 87426; J1885; J3010